=== PATIENT | male | born 1970 | race African-American/Black ===

== ENCOUNTER 2020-05-01 15:00 | Inpatient (IN) | payer OTHER ==
--- NOTE | 2020-05-01 15:50 | BHS.RME ---
Substance Use & Tx History - Substance Use History Alcohol Substance amount: 4-5 40 oz beer, one pint madie Frequency of use: Daily Substance route: Oral Date of Last Use: 05/01/20 Heroin Substance amount: one bundle Frequency of use: Daily Substance route: Inhalation (ex: sniffing or snorting) Date of Last Use: 04/30/20 Cocaine-Crack Substance amount: $100 Frequency of use: Once a month Substance route: Smoking Date of Last Use: 03/02/20 - Last Treatment Date of last treatment: first [facility] visit Physical/Psych/Mental Status - Behavior General Behavior: Increased activity (restlessness, agitation) Eye Contact: Normal - Cooperativeness Cooperativeness: Cooperative - Thinking Thought Processes: Tight Thought content: Future oriented - Physical Health Problems Is patient presently having any pain?: No Does patient presently have any injuries (include location): No Does patient currently have a fever: No CIWA Nausea/Vomitin-Mild Nausea/No Vomiting Muscle Tremors: 1-None Visible, but [place] Anxiety: 3 Agitation: 1-Slight > Activity Paroxysmal Sweats: 2 Orientation: 0-Oriented Tacttile Disturbances: 0-None Auditory Disturbances: 0-None Visual Disturbances: 1-Very Mild Sensitivity Headache: 0-None Present CIWA-Ar Total Score: 9
--- NOTE | 2020-05-01 16:45 | HP ---
COWS - Scale Resting Pulse: 0= NV 80 or Below Sweatin= No chills or Flushing Restless Observation: 0= Sits Still Pupil Size: 0= Normal to Room Light Bone or Joint Aches: 0= None Runny Nose/ Eye Tearin= None GI Upset > 30mins: 0= None Tremor Observation: 0= None Yawning Observation: 0= None Anxiety or Irritability: 1=Feels Anxious/Irritable Goose Flesh Skin: 0=Smooth Skin COWS Score: 1 CIWA Score Nausea/Vomitin-Mild Nausea/No Vomiting (Patient is at high risk of relapse due to poor living environment. Patient is not in full withdrawal due to having drank recently.) Muscle Tremors: 1-None Visible, but [place] Anxiety: 3 Agitation: 1-Slight > Activity Paroxysmal Sweats: 2 Orientation: 0-Oriented Tacttile Disturbances: 0-None Auditory Disturbances: 0-None Visual Disturbances: 1-Very Mild Sensitivity Headache: 0-None Present CIWA-Ar Total Score: 9 - Admission Criteria OASAS Guidelines: Admission for Medically Managed Detox: Requires at least one of the followin. CIWA greater than 12 2. Seizures within the past 24 hours 3. Delirium tremens within the past 24 hours 4. Hallucinations within the past 24 hours 5. Acute intervention needed for co occurring medical disorder 6. Acute intervention needed for co occurring psychiatric disorder 7. Severe withdrawal that cannot be handled at a lower level of care (continued vomiting, continued diarrhea, abnormal vital signs) requiring intravenous medication and/or fluids 8. Admitting History and Physical - Admission Chief Complaint: detox History of Present Illness: Patient is a 50 y.o. PMHx of diabetes and hyperlipidemia presenting to [facility] for detox. Patient was examined in the room and is in no acute distress. 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 Heroin 1 bundle a day intranasal, 2 overdoses, crack 100$ every month, smoke 2 packs of cigarettes a day. - Substance Use History Alcohol Substance amount: 4-5 40 oz beer, one pint madie Frequency of use: Daily Substance route: Oral Date of Last Use: 05/01/20 Heroin Substance amount: one bundle Frequency of use: Daily Substance route: Inhalation (ex: sniffing or snorting) Date of Last Use: 04/30/20 Cocaine-Crack Substance amount: $100 Frequency of use: Once a month Substance route: Smoking Date of Last Use: 03/02/20 - Last Treatment Date of last treatment: first [facility] visit - Past Medical History PIECE DYER: No: Seizure Cardiovascular: Yes: Hyperlipdemia. No: HTN Pulmonary: No: COPD, Pneumonia Gastrointestinal: No: GERD, GI Bleed Hepatobiliary: Yes: Hepatitis C Heme/Onc: No: Anemia Infectious Disease: Yes: STD's. No: HIV, Tuberculosis Psych: Yes: Depression - Past Surgical History Past Surgical History: Yes: Stent (x1 LLE) - Smoking History Smoking history: Current every day smoker Have you smoked in the past 12 months: Yes Aproximately how many cigarettes per day: 40 - Alcohol/Substance Use Hx Alcohol Use: Yes Number of Drinks Daily: 4 History of Substance Use: reports: Cocaine, Heroin - Social History Usual Living Arrangement: Yes: Alone ADL: Independent Occupation: [employer] History of Recent Travel: No Admission [facility] Allergies/Adverse Reactions: Allergies Allergy/AdvReac Type Severity Reaction Status Date / Time No Known Allergies Allergy Verified 05/01/20 16:53 History of Present Illness: Patient is a 50 y.o. PMHx of diabetes and hyperlipidemia presenting to [facility] for detox. Patient was examined in the room and is in no acute distress. 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 Heroin 1 bundle a day intranasal, 2 overdoses, crack 100$ every month, smoke 2 packs of cigarettes a day. - Substance Use History Alcohol Substance amount: 4-5 40 oz beer, one pint madie Frequency of use: Daily Substance route: Oral Date of Last Use: 05/01/20 Heroin Substance amount: one bundle Frequency of use: Daily Substance route: Inhalation (ex: sniffing or snorting) Date of Last Use: 04/30/20 Cocaine-Crack Substance amount: $100 Frequency of use: Once a month Substance route: Smoking Date of Last Use: 03/02/20 - Last Treatment Date of last treatment: first [facility] visit - Ebola screening Have you traveled outside of the country in the last 21 days: No Have you had contact with anyone from an Ebola affected area: No Have you been sick,other than usual withdrawal symptoms: No Do you have a fever: No - Review of Systems Constitutional: No Symptoms Reported EENT: denies: Blurred Vision, Double Vision Respiratory: denies: Cough, Shortness of Breath Cardiac: denies: Chest Pain, Lightheadedness GI: denies: Constipated, Diarrhea, Nausea, Vomiting : denies: Burning, Dysuria Musculoskeletal: reports: Back Pain Integumentary: reports: No Symptoms Reported Neuro: denies: Headache, Dizziness Psychiatric: reports: Judgement Intact, Mood/Affect Appropiate, Orientated x3, Anxious, Depressed Patient History - Smoking Cessation Smoking history: Current every day smoker Initiated information on smoking cessation: Yes 'Breaking Loose' booklet given: 05/01/20 Admission Physical Exam [facility] Physical General Appearance: Yes: Within Normal Limits, No Apparent Distress, Nourished, Appropriately Dressed Respiratory: Yes: No Respiratory Distress, No Accessory Muscle Use, Wheezing Cardiology: Yes: Within Normal Limits, Regular Rhythm, Regular Rate Abdominal: Yes: Within Normal Limits, Normal Bowel Sounds, Non Tender, Flat, Soft Back: Yes: Within Normal Limits. No: CVA Tenderness, CVA Tenderness (L) Musculoskeletal: Yes: Within Normal Limits, Joint Stiffness. No: Joint swelling, Muscle Pain Extremities: Yes: Normal Inspection, Non-Tender. No: Pedal Edema Neurological: Yes: Within Normal Limits, Fully Oriented, Alert, Motor Strength 5/5, Normal Mood/Affect, Normal Response Integumentary: Yes: Within Normal Limits, Dry, Warm - Diagnostic (1) Alcohol abuse Current Visit: Yes Status: Acute (2) Alcohol abuse with alcohol-induced disorder Current Visit: Yes Status: Acute (3) Alcohol abuse with alcohol-induced anxiety disorder Current Visit: Yes Status: Acute (4) Depressed Current Visit: Yes Status: Acute Cleared for Admission [facility] - Detox or Rehab [facility] Level of Care: Medically Managed Detox Regimen/Protocol: Methadone Breathalyzer - Breathalyzer Breathalyzer: 0.036 Vital Signs - Vital Signs Vital signs refused: No Temperature: 97.9 F Pulse Rate: 71 Respiratory Rate: 20 Blood Pressure: 119/71 - Height Height: 1.7 m - Weight Weight: 73.482 kg - BMI Body Mass Index (BMI): 25.3 Urine Drug Screen - Test Device Lot number: [id number] Expiration date: 12/05/21 - Control Is test valid?: Yes - Results Drug screen NEGATIVE: No Urine drug screen results: FEN-Fentanyl, MOP-Opiates, MTD-Methadone Inpatient Rehab Admission - Rehab Decision to Admit Inpatient rehab admission?: No
[2020-05-01] MEDS ORDERED: ONDANSETRON *ODT* 4 MG TABLET SL ONE (16:53)
[2020-05-01] MEDS ORDERED: chlordiazePOXIDE HCL 25 MG CAPSULE PO PRN (16:53)
[2020-05-01] MEDS ORDERED: MAG HYDROX/AL HYDROX/SIMETH 30 ML UNIT-DOSE CUP PO PRN (16:53)
[2020-05-01] MEDS ORDERED: MENTHOL/PHENOL 1 EACH UD MM PRN (16:53)
[2020-05-01] MEDS ORDERED: NICOTINE POLACRILEX 2 MG GUM BUC PRN (16:53)
[2020-05-01] MEDS ORDERED: BISMUTH SUBSALICYLATE 524 MG/30 ML UD PO PRN (16:53)
[2020-05-01] MEDS ORDERED: MAGNESIUM HYDROX 2400MG/30ML ORAL SUSPENSION 30 ML CUP PO PRN (16:53)
[2020-05-01] MEDS ORDERED: IBUPROFEN 400 MG TABLET (FP) PO PRN (16:53)
[2020-05-01] MEDS ORDERED: ACETAMINOPHEN 325 MG TABLET (FP) PO PRN ×2 (16:53)
[2020-05-01] MEDS ORDERED: MAGNESIUM CITRATE 300 ML BOTTLE PO PRN (16:53)
[2020-05-01 16:56] VITALS: BMI 25.3
[2020-05-01] MEDS: chlordiazePOXIDE HCL 25 MG CAPSULE PO SCH ×2 (18:34→23:16)
[2020-05-01] MEDS: hydrOXYzine PAMOATE 25 MG CAPSULE (FP) PO SCH ×2 (18:34→23:16)
[2020-05-01] MEDS: THIAMINE HCL 100 MG TABLET (FP) PO SCH (23:16)
[2020-05-01] MEDS: MELATONIN 5 MG TABLETS PO SCH (23:17)
[2020-05-02] MEDS: hydrOXYzine PAMOATE 25 MG CAPSULE (FP) PO SCH ×5 (06:01→23:09)
[2020-05-02] MEDS: chlordiazePOXIDE HCL 25 MG CAPSULE PO SCH ×4 (06:01→23:08)
[2020-05-02] MEDS ORDERED: METHADONE HCL 10 MG TABLET PO SCH (09:15)
[2020-05-02] MEDS ORDERED: METHADONE 40 MG, METHADONE 30 MG PO ONE (09:45)
[2020-05-02] MEDS ORDERED: METHADONE HCL 10 MG TABLET ONE (10:02)
[2020-05-02] MEDS ORDERED: METHADONE HCL 40 MG DISPERSABLE TABLET ONE (10:03)
[2020-05-02] MEDS: NICOTINE 7 MG/24 HOURS TOPICAL PATCH TD SCH (10:15)
[2020-05-02] MEDS: PRENATAL VITAMINS W/ FOLIC ACID TABLET (FP) PO SCH (10:15)
--- NOTE | 2020-05-02 10:18 | PN ---
Teaching Attending Note Name of Resident: Conrado Griffith ATTENDING PHYSICIAN STATEMENT I saw and evaluated the patient. I reviewed the resident's note and discussed the case with the resident. I agree with the resident's findings and plan as documented. SUBJECTIVE: OBJECTIVE: ASSESSMENT AND PLAN: Agree with resident's findings and plan for detox.
[2020-05-02 10:55] LABS: HEMATOCRIT 44.2 % (35.4-49); HEMOGLOBIN 15.2 GM/dL (11.7-16.9); MCH 30.5 pg (25.7-33.7); MCHC 34.4 g/dl (32.0-35.9); MEAN CELL VOLUME 88.5 fl (80-96); MEAN PLT VOLUME 9.1 fl (7.5-11.1); PLATELET COUNT 279 K/MM3 (134-434); RBC 4.99 M/mm3 (4.00-5.60); RDW 13.1 % (11.9-15.9); WHITE BLOOD COUNT 6.9 K/mm3 (4.0-10.0)
[2020-05-02 11:07] LABS: ALBUMIN 3.1 g/dl (3.4-5.0); BILIRUBIN,TOTAL 0.5 mg/dL (0.2-1); BLOOD UREA NITROGEN 9.5 mg/dL (7-18); CALCIUM 8.7 mg/dL (8.5-10.1); CREATININE 0.9 mg/dL (0.55-1.3); TOT PROT 7.1 g/dl (6.4-8.2)
--- NOTE | 2020-05-02 14:44 | PN ---
S CIWA - CIWA Score Nausea/Vomitin Muscle Tremors: 2 Anxiety: 2 Agitation: 2 Paroxysmal Sweats: 1-Minimal Palms Moist Orientation: 0-Oriented Tacttile Disturbances: 1-Very Mild Itch/Numbness Auditory Disturbances: 0-None Visual Disturbances: 0-None Headache: 2-Mild CIWA-Ar Total Score: 12 BHS Progress Note (SOAP) Subjective: alert,irritable,anxious,interrupted sleep,tremor,aching pain in the body and back,history of type 2 dm non compliance Objective: 05/02/20 14:41 Vital Signs Temperature 98.0 F 05/02/20 13:02 Pulse Rate 69 05/02/20 13:02 Respiratory Rate 18 05/02/20 13:02 Blood Pressure 148/80 05/02/20 13:02 O2 Sat by Pulse Oximetry (%) 95 05/02/20 13:02 05/02/20 14:41 Laboratory Last Values WBC 6.9 K/mm3 (4.0-10.0) 05/02/20 08:10 RBC 4.99 M/mm3 (4.00-5.60) 05/02/20 08:10 Hgb 15.2 GM/dL (11.7-16.9) 05/02/20 08:10 Hct 44.2 % (35.4-49) 05/02/20 08:10 MCV 88.5 fl (80-96) 05/02/20 08:10 MCH 30.5 pg (25.7-33.7) 05/02/20 08:10 MCHC 34.4 g/dl (32.0-35.9) 05/02/20 08:10 RDW 13.1 % (11.9-15.9) 05/02/20 08:10 Plt Count 279 K/MM3 (134-434) 05/02/20 08:10 MPV 9.1 fl (7.5-11.1) 05/02/20 08:10 Sodium 139 mmol/L (136-145) 05/02/20 08:10 Potassium 4.0 mmol/L (3.5-5.1) 05/02/20 08:10 Chloride 104 mmol/L (98-107) 05/02/20 08:10 Carbon Dioxide 29 mmol/L (21-32) 05/02/20 08:10 Anion Gap 6 MMOL/L (8-16) L 05/02/20 08:10 BUN 9.5 mg/dL (7-18) 05/02/20 08:10 Creatinine 0.9 mg/dL (0.55-1.3) 05/02/20 08:10 Est GFR (CKD-EPI)AfAm 114.21 05/02/20 08:10 Est GFR (CKD-EPI)NonAf 98.54 05/02/20 08:10 Random Glucose 359 mg/dL (74-106) H 05/02/20 08:10 Calcium 8.7 mg/dL (8.5-10.1) 05/02/20 08:10 Total Bilirubin 0.5 mg/dL (0.2-1) 05/02/20 08:10 AST 8 U/L (15-37) L 05/02/20 08:10 ALT 15 U/L (13-61) 05/02/20 08:10 Alkaline Phosphatase 104 U/L (45-117) 05/02/20 08:10 Total Protein 7.1 g/dl (6.4-8.2) 05/02/20 08:10 Albumin 3.1 g/dl (3.4-5.0) L 05/02/20 08:10 Syphilis Serology Reactive (NONREACTIVE) A* 05/02/20 08:10 RPR Titer Reactive 1:1 (NONREACTIVE) H 05/02/20 08:10 COVID-19 ([place]) Not detected (Not Detected) 05/01/20 17:00 patinet type dm non compliance history fo syhilis adequately treated with 3 injections 2 years ago Assessment: 05/02/20 14:42 withdrawal symptom Plan: continue detox librium regimen,bgm achs,metformin 500 mgs po bidac,insulin coverage sliding scale
--- NOTE | 2020-05-02 15:30 | EKG ---
Test Reason : Blood Pressure : / mmHG Vent. Rate : 064 BPM Atrial Rate : 064 BPM P-R Int : 150 ms QRS Dur : 104 ms QT Int : 416 ms P-R-T Axes : 066 074 -10 degrees QTc Int : 429 ms NORMAL SINUS RHYTHM MINIMAL VOLTAGE CRITERIA FOR LVH, MAY BE NORMAL VARIANT T WAVE ABNORMALITY, CONSIDER ANTEROLATERAL ISCHEMIA ABNORMAL ECG NO PREVIOUS ECGS AVAILABLE Confirmed by CALEB KOVACS, BESSY ([id number]) on 05/02/2020 3:29:39 PM Referred By: Confirmed By:BESSY ELLIS MD
[2020-05-02] MEDS ORDERED: INSULIN SLIDING SCALE (NOVOLOG) 1 VIAL SQ ONE (17:16)
[2020-05-02] MEDS: metFORMIN HCL 500 MG TABLET (FP) PO SCH (17:44)
[2020-05-02] MEDS: INSULIN (NOVOLOG) ASPART 100 UNITS/ML 10ML VIAL SQ SCH ×2 (17:47→23:08)
[2020-05-02] MEDS: THIAMINE HCL 100 MG TABLET (FP) PO SCH (23:09)
[2020-05-02] MEDS: MELATONIN 5 MG TABLETS PO SCH (23:09)
[2020-05-03] MEDS ORDERED: METHADONE HCL 10 MG TABLET ONE (04:58)
[2020-05-03] MEDS ORDERED: METHADONE HCL 40 MG DISPERSABLE TABLET ONE (04:59)
[2020-05-03] MEDS: METHADONE 40 MG, METHADONE 30 MG PO SCH (07:19)
[2020-05-03] MEDS: chlordiazePOXIDE HCL 25 MG CAPSULE PO SCH ×4 (07:20→22:59)
[2020-05-03] MEDS: metFORMIN HCL 500 MG TABLET (FP) PO SCH ×2 (07:20→17:30)
[2020-05-03] MEDS: hydrOXYzine PAMOATE 25 MG CAPSULE (FP) PO SCH ×5 (07:20→23:00)
[2020-05-03] MEDS ORDERED: INSULIN SLIDING SCALE (NOVOLOG) 1 VIAL SQ ONE (07:21)
[2020-05-03] MEDS: INSULIN (NOVOLOG) ASPART 100 UNITS/ML 10ML VIAL SQ SCH ×4 (07:36→23:01)
--- NOTE | 2020-05-03 09:32 | PN ---
BHS Progress Note (SOAP) Subjective: complaints of mild low back pain Objective: 05/03/20 09:27 PE Gnl: WDWN, in no distress MS: awake, alert, nl language function Motor: nl movement of limbs Coordination: nl, nl tremor Laboratory Tests 05/01/20 05/02/20 05/02/20 17:00 08:00 08:10 WBC RBC Hgb Hct MCV MCH MCHC RDW Plt Count MPV Sodium Potassium Chloride Carbon Dioxide Anion Gap BUN Creatinine Est GFR (CKD-EPI)AfAm Est GFR (CKD-EPI)NonAf POC Glucometer Random Glucose Hemoglobin A1c % 12.4 H Calcium Total Bilirubin AST ALT Alkaline Phosphatase Total Protein Albumin Syphilis Serology Reactive A* RPR Titer COVID-19 ([place]) Not detected 05/02/20 05/02/20 05/02/20 08:10 08:10 08:10 WBC 6.9 RBC 4.99 Hgb 15.2 Hct 44.2 MCV 88.5 MCH 30.5 MCHC 34.4 RDW 13.1 Plt Count 279 MPV 9.1 Sodium 139 Potassium 4.0 Chloride 104 Carbon Dioxide 29 Anion Gap 6 L BUN 9.5 Creatinine 0.9 Est GFR (CKD-EPI)AfAm 114.21 Est GFR (CKD-EPI)NonAf 98.54 POC Glucometer Random Glucose 359 H Hemoglobin A1c % Calcium 8.7 Total Bilirubin 0.5 AST 8 L ALT 15 Alkaline Phosphatase 104 Total Protein 7.1 Albumin 3.1 L Syphilis Serology RPR Titer Reactive 1:1 H COVID-19 ([place]) 05/02/20 05/02/20 05/03/20 16:54 21:09 07:19 WBC RBC Hgb Hct MCV MCH MCHC RDW Plt Count MPV Sodium Potassium Chloride Carbon Dioxide Anion Gap BUN Creatinine Est GFR (CKD-EPI)AfAm Est GFR (CKD-EPI)NonAf POC Glucometer 515 469 244 Random Glucose Hemoglobin A1c % Calcium Total Bilirubin AST ALT Alkaline Phosphatase Total Protein Albumin Syphilis Serology RPR Titer COVID-19 ([place]) Home Medication List Medication Instructions Recorded Confirmed Type Metformin HCl [Glucophage] 500 mg PO BID 05/02/20 05/02/20 History Active Medications Generic Name Dose Route Start Last Admin Trade Name Freq PRN Reason Stop Dose Admin Acetaminophen 650 mg 05/01/20 16:53 Tylenol - PO Q6H PRN PAIN LEVEL 4 - 6 Acetaminophen 650 mg 05/01/20 16:53 Tylenol - PO Q6H PRN FEVER Al Hydroxide/Mg Hydroxide 30 ml 05/01/20 16:53 Mylanta Oral Suspension - PO Q6H PRN DYSPEPSIA Bismuth Subsalicylate 524 mg 05/01/20 16:53 Pepto-Bismol - PO Q1H PRN DIARRHEA Chlordiazepoxide HCl 25 mg 05/03/20 05:00 05/03/20 07:20 Librium - PO 05/03/20 23:01 25 mg [id number] CHRISTEL Administration Chlordiazepoxide HCl 25 mg 05/01/20 16:53 Librium - PO 05/03/20 23:59 Q4H PRN WITHDRAWAL(CONT SUBST) Chlordiazepoxide HCl 10 mg 05/04/20 05:00 Librium - PO 05/04/20 23:01 Q5P-IIN CHRISTEL Chlordiazepoxide HCl 10 mg 05/05/20 05:00 Librium - PO 05/05/20 17:01 Q12H CHRISTEL Chlordiazepoxide HCl 10 mg 05/04/20 00:00 Librium - PO 05/05/20 00:00 Q4H PRN WITHDRAWAL(CONT SUBST) Chlordiazepoxide HCl 10 mg 05/06/20 05:00 Librium - PO 05/06/20 05:01 ONCE@0500 ONE Eucalyptus/Menthol/Phenol/Sorbitol 1 each 05/01/20 16:53 Cepastat Lozenge - MM 05/07/20 16:53 Q4H PRN SORE THROAT Hydroxyzine Pamoate 25 mg 05/01/20 18:00 05/03/20 07:20 Vistaril - PO 05/07/20 16:53 25 mg Q4HWA CHRISTEL Administration Ibuprofen 400 mg 05/01/20 16:53 Motrin - PO Q6H PRN PAIN LEVEL 1 - 3 Insulin Aspart 0 units 05/02/20 16:30 05/03/20 07:36 Novolog Vial SQ 4 units ACHS CHRISTEL Administration Protocol Magnesium Citrate 300 ml 05/01/20 16:53 Citroma - PO Q48H PRN CONSTIPATION Magnesium Hydroxide 30 ml 05/01/20 16:53 Milk Of Magnesia - PO PRN PRN CONSTIPATION Melatonin 5 mg 05/01/20 22:00 05/02/20 23:09 Melatonin PO 5 mg HS CHRISTEL Administration Metformin HCl 500 mg 05/02/20 16:30 05/03/20 07:20 Glucophage - PO 500 mg BIDAC CHRISTEL Administration Methadone HCl 40 mg/ Methadone 70 mg 05/03/20 06:00 05/03/20 07:19 HCl 30 mg PO 05/09/20 06:01 70 mg DAILY@0600 CHRISTEL Administration Methocarbamol 500 mg 05/01/20 16:53 Robaxin - PO 05/07/20 16:53 Q6H PRN MUSCLE SPASMS Nicotine 7 mg 05/02/20 10:00 05/02/20 10:15 Nicoderm Patch - TD Not Given DAILY CHRISTEL Nicotine Polacrilex 2 mg 05/01/20 16:53 Nicorette Gum - BUC Q2H PRN NICOTINE REPLACEMENT RX Multivit/Folic Acid/Iron 1 tab 05/02/20 10:00 05/02/20 10:15 Vitamins (Sjr) - PO 1 tab DAILY CHRISTEL Administration Thiamine HCl 100 mg 05/01/20 22:00 05/02/20 23:09 Vitamin B1 - PO 100 mg HS CHRISTEL Administration Assessment: 05/03/20 09:27 Patient is a 50 y.o. PMHx of diabetes and hyperlipidemia [facility] Patient was examined in the room and is in no acute distress. 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 Heroin 1 bundle a day intranasal, 2 overdoses, crack 100$ every month, smoke 2 packs of cigarettes a day. Imp 1. Alcohol use disorder, in withdrawal 2. Opiate use disorder, withdrawal 3. Cocaine use disorder 4. DM, glucose trending down 5. hyperlipidemia 6. RPR 1:1 05/03/20 09:29 05/03/20 09:31 Plan: 1. Librium detox protocol 2. Metformin, continue 500 bid 3. will check pts hx ? tx for syphilis 4. prn Robaxin for back complaints
[2020-05-03] MEDS: PRENATAL VITAMINS W/ FOLIC ACID TABLET (FP) PO SCH (10:17)
[2020-05-03] MEDS: NICOTINE 7 MG/24 HOURS TOPICAL PATCH TD SCH (10:17)
[2020-05-03] MEDS: MELATONIN 5 MG TABLETS PO SCH (23:00)
[2020-05-03] MEDS: THIAMINE HCL 100 MG TABLET (FP) PO SCH (23:21)
[2020-05-04] MEDS ORDERED: chlordiazePOXIDE HCL 10 MG CAPSULE PO PRN
[2020-05-04] MEDS ORDERED: METHADONE HCL 10 MG TABLET ONE (04:34)
[2020-05-04] MEDS ORDERED: METHADONE HCL 40 MG DISPERSABLE TABLET ONE (04:34)
[2020-05-04] MEDS: metFORMIN HCL 500 MG TABLET (FP) PO SCH ×2 (06:18→18:44)
[2020-05-04] MEDS: METHADONE 40 MG, METHADONE 30 MG PO SCH (06:18)
[2020-05-04] MEDS: chlordiazePOXIDE HCL 10 MG CAPSULE PO SCH ×4 (06:18→23:28)
[2020-05-04] MEDS: hydrOXYzine PAMOATE 25 MG CAPSULE (FP) PO SCH ×5 (06:29→23:28)
[2020-05-04] MEDS: INSULIN (NOVOLOG) ASPART 100 UNITS/ML 10ML VIAL SQ SCH ×4 (07:12→23:29)
[2020-05-04] MEDS: PRENATAL VITAMINS W/ FOLIC ACID TABLET (FP) PO SCH (10:07)
[2020-05-04] MEDS: METHOCARBAMOL 500 MG TABLET PO PRN ×2 (10:08→23:28)
[2020-05-04] MEDS: NICOTINE 7 MG/24 HOURS TOPICAL PATCH TD SCH (10:08)
--- NOTE | 2020-05-04 11:24 | PN ---
BHS CIWA - CIWA Score Nausea/Vomitin-No Nausea/No Vomiting Muscle Tremors: None Anxiety: 2 Agitation: 0-Normal Activity Paroxysmal Sweats: 2 Orientation: 0-Oriented Tacttile Disturbances: 0-None Auditory Disturbances: 0-None Visual Disturbances: 0-None Headache: 2-Mild CIWA-Ar Total Score: 6 BHS Progress Note (SOAP) Subjective: c/o sweats, anxiety, and headache. Objective: 05/04/20 11:23 Vital Signs 05/04/20 05/04/20 05/04/20 06:27 07:57 09:20 Temperature 98.1 F 96.8 F L Pulse Rate 96 H 58 L 83 Respiratory 18 18 18 Rate Blood Pressure 162/103 H 169/93 143/88 O2 Sat by Pulse 97 Oximetry (%) Assessment: 05/04/20 11:24 AOX3, in no acute respiratory distress. Full ROM, ambulating in the unit. Withdrawal symptoms. Plan: continue detox.
[2020-05-04] MEDS: MELATONIN 5 MG TABLETS PO SCH (23:28)
[2020-05-04] MEDS: THIAMINE HCL 100 MG TABLET (FP) PO SCH (23:29)
[2020-05-05] MEDS ORDERED: METHADONE HCL 10 MG TABLET ONE (04:06)
[2020-05-05] MEDS ORDERED: METHADONE HCL 40 MG DISPERSABLE TABLET ONE (04:06)
[2020-05-05] MEDS: METHADONE 40 MG, METHADONE 30 MG PO SCH (06:10)
[2020-05-05] MEDS: chlordiazePOXIDE HCL 10 MG CAPSULE PO SCH ×2 (06:10→17:28)
[2020-05-05] MEDS: hydrOXYzine PAMOATE 25 MG CAPSULE (FP) PO SCH ×5 (06:10→22:40)
[2020-05-05] MEDS: INSULIN (NOVOLOG) ASPART 100 UNITS/ML 10ML VIAL SQ SCH ×4 (07:42→22:42)
[2020-05-05] MEDS: metFORMIN HCL 500 MG TABLET (FP) PO SCH ×2 (07:44→17:27)
[2020-05-05] MEDS: PRENATAL VITAMINS W/ FOLIC ACID TABLET (FP) PO SCH (10:09)
[2020-05-05] MEDS: NICOTINE 7 MG/24 HOURS TOPICAL PATCH TD SCH (10:09)
[2020-05-05] MEDS: METHOCARBAMOL 500 MG TABLET PO PRN (10:10)
[2020-05-05] MEDS ORDERED: INSULIN SLIDING SCALE (NOVOLOG) 1 VIAL SQ ONE (11:53)
--- NOTE | 2020-05-05 15:01 | PN ---
S CIWA - CIWA Score Nausea/Vomitin-No Nausea/No Vomiting Muscle Tremors: 1-None Visible, but [place] Anxiety: 1-Mildly Anxious Agitation: 0-Normal Activity Paroxysmal Sweats: 1-Minimal Palms Moist Orientation: 0-Oriented Tacttile Disturbances: 0-None Auditory Disturbances: 0-None Visual Disturbances: 0-None Headache: 0-None Present CIWA-Ar Total Score: 3 BHS Progress Note (SOAP) Subjective: 50 years old male was admitted on 05/01/20 for alcohol withdrawal sx management treating with librium detox regiment feels better today less tremor mild anxiety mr caceres prefers returning to methadone program for behavior and p sychosocial therapies Objective: 05/05/20 15:00 Laboratory Tests 05/01/20 05/02/20 05/02/20 17:00 08:00 08:10 WBC RBC Hgb Hct MCV MCH MCHC RDW Plt Count MPV Sodium Potassium Chloride Carbon Dioxide Anion Gap BUN Creatinine Est GFR (CKD-EPI)AfAm Est GFR (CKD-EPI)NonAf POC Glucometer Random Glucose Hemoglobin A1c % 12.4 H Calcium Total Bilirubin AST ALT Alkaline Phosphatase Total Protein Albumin Syphilis Serology Reactive A* RPR Titer COVID-19 ([place]) Not detected 05/02/20 05/02/20 05/02/20 08:10 08:10 08:10 WBC 6.9 RBC 4.99 Hgb 15.2 Hct 44.2 MCV 88.5 MCH 30.5 MCHC 34.4 RDW 13.1 Plt Count 279 MPV 9.1 Sodium 139 Potassium 4.0 Chloride 104 Carbon Dioxide 29 Anion Gap 6 L BUN 9.5 Creatinine 0.9 Est GFR (CKD-EPI)AfAm 114.21 Est GFR (CKD-EPI)NonAf 98.54 POC Glucometer Random Glucose 359 H Hemoglobin A1c % Calcium 8.7 Total Bilirubin 0.5 AST 8 L ALT 15 Alkaline Phosphatase 104 Total Protein 7.1 Albumin 3.1 L Syphilis Serology RPR Titer Reactive 1:1 H COVID-19 ([place]) 05/02/20 05/02/20 05/03/20 16:54 21:09 07:19 WBC RBC Hgb Hct MCV MCH MCHC RDW Plt Count MPV Sodium Potassium Chloride Carbon Dioxide Anion Gap BUN Creatinine Est GFR (CKD-EPI)AfAm Est GFR (CKD-EPI)NonAf POC Glucometer 515 469 244 Random Glucose Hemoglobin A1c % Calcium Total Bilirubin AST ALT Alkaline Phosphatase Total Protein Albumin Syphilis Serology RPR Titer COVID-19 ([place]) 05/03/20 05/03/20 05/04/20 16:48 20:42 06:17 WBC RBC Hgb Hct MCV MCH MCHC RDW Plt Count MPV Sodium Potassium Chloride Carbon Dioxide Anion Gap BUN Creatinine Est GFR (CKD-EPI)AfAm Est GFR (CKD-EPI)NonAf POC Glucometer > 600 466 350 Random Glucose Hemoglobin A1c % Calcium Total Bilirubin AST ALT Alkaline Phosphatase Total Protein Albumin Syphilis Serology RPR Titer COVID-19 ([place]) 05/04/20 05/04/20 05/04/20 11:11 18:42 23:27 WBC RBC Hgb Hct MCV MCH MCHC RDW Plt Count MPV Sodium Potassium Chloride Carbon Dioxide Anion Gap BUN Creatinine Est GFR (CKD-EPI)AfAm Est GFR (CKD-EPI)NonAf POC Glucometer 471 510 277 Random Glucose Hemoglobin A1c % Calcium Total Bilirubin AST ALT Alkaline Phosphatase Total Protein Albumin Syphilis Serology RPR Titer COVID-19 ([place]) 05/05/20 05/05/20 06:10 11:48 WBC RBC Hgb Hct MCV MCH MCHC RDW Plt Count MPV Sodium Potassium Chloride Carbon Dioxide Anion Gap BUN Creatinine Est GFR (CKD-EPI)AfAm Est GFR (CKD-EPI)NonAf POC Glucometer 248 507 Random Glucose Hemoglobin A1c % Calcium Total Bilirubin AST ALT Alkaline Phosphatase Total Protein Albumin Syphilis Serology RPR Titer COVID-19 ([place]) uncontrolled insulin dependent diabetes aic 12.4 indicates lack of diabetes management health teaching on risks of uncontrolled hyperglycemia insults eyes and kidney and neuro damage 05/05/20 15:02 Assessment: 05/05/20 15:03 alcohol withdrawal 05/05/20 15:03 uncontrolled insulin dependent diabetes Plan: librium regiment metformin with insulin coverage
[2020-05-05] MEDS: MELATONIN 5 MG TABLETS PO SCH (22:42)
[2020-05-05] MEDS: THIAMINE HCL 100 MG TABLET (FP) PO SCH (22:43)
[2020-05-06] MEDS ORDERED: chlordiazePOXIDE HCL 10 MG CAPSULE PO ONE (05:00)
[2020-05-06] MEDS ORDERED: METHADONE HCL 40 MG DISPERSABLE TABLET ONE (05:05)
[2020-05-06] MEDS ORDERED: METHADONE HCL 10 MG TABLET ONE (05:05)
[2020-05-06] MEDS: METHADONE 40 MG, METHADONE 30 MG PO SCH (06:38)
[2020-05-06] MEDS: metFORMIN HCL 500 MG TABLET (FP) PO SCH (06:39)
[2020-05-06] MEDS: hydrOXYzine PAMOATE 25 MG CAPSULE (FP) PO SCH ×2 (06:48→10:15)
[2020-05-06] MEDS: INSULIN (NOVOLOG) ASPART 100 UNITS/ML 10ML VIAL SQ SCH (07:09)
[2020-05-06] MEDS ORDERED: INSULIN SLIDING SCALE (NOVOLOG) 1 VIAL SQ ONE (07:48)
[2020-05-06 09:55] VITALS: BP 132/91; PULSE 92; TEMP 97.1
[2020-05-06] MEDS: NICOTINE 7 MG/24 HOURS TOPICAL PATCH TD SCH (10:15)
[2020-05-06] MEDS: PRENATAL VITAMINS W/ FOLIC ACID TABLET (FP) PO SCH (10:15)
--- NOTE | 2020-05-06 13:01 | DS ---
[facility] Discharge Summary Admission Date: 05/01/20 Discharge Date: 05/06/20 - History Present History: Alcohol Dependence Additional Comments: 50 years old male was admitted on 05/01/20 for alcohol withdrawal sx management treated with librium detox regiment mr mantilla has completed the librium regimen and is tolerated well General Appearance: Yes: Within Normal Limits, No Apparent Distress, Nourished, Appropriately Dressed Respiratory: Yes: No Respiratory Distress, No Accessory Muscle Use, Wheezing Cardiology: Yes: Within Normal Limits, Regular Rhythm, Regular Rate Abdominal: Yes: Within Normal Limits, Normal Bowel Sounds, Non Tender, Flat, Soft Back: Yes: Within Normal Limits. No: CVA Tenderness, CVA Tenderness (L) Musculoskeletal: Yes: Within Normal Limits, Joint Stiffness. No: Joint swelling, Muscle Pain Extremities: Yes: Normal Inspection, Non-Tender. No: Pedal Edema Neurological: Yes: Within Normal Limits, Fully Oriented, Alert, Motor Strength 5/5, Normal Mood/Affect, Normal Response Integumentary: Yes: Within Normal Limits, Dry, Warm Pertinent Past History: time for discharge 48 minutes transferred order set from detox to rehab - Physical Exam Results Vital Signs: Vital Signs Temperature 97.1 F L 05/06/20 08:34 Pulse Rate 92 H 05/06/20 08:34 Respiratory Rate 18 05/06/20 08:34 Blood Pressure 132/91 05/06/20 08:34 O2 Sat by Pulse Oximetry (%) 97 05/06/20 06:46 Pertinent Admission Physical Exam Findings: alcohol withdrawal Vital Signs - 24 hr 05/05/20 05/05/20 05/06/20 16:32 20:56 06:46 Temperature 97.3 F L 97.5 F L 98.6 F Pulse Rate 74 84 80 Respiratory 18 18 18 Rate Blood Pressure 116/80 138/88 152/87 O2 Sat by Pulse 95 97 Oximetry (%) 05/06/20 08:34 Temperature 97.1 F L Pulse Rate 92 H Respiratory 18 Rate Blood Pressure 132/91 O2 Sat by Pulse Oximetry (%) Laboratory Tests 05/01/20 05/02/20 05/02/20 17:00 08:00 08:10 WBC RBC Hgb Hct MCV MCH MCHC RDW Plt Count MPV Sodium Potassium Chloride Carbon Dioxide Anion Gap BUN Creatinine Est GFR (CKD-EPI)AfAm Est GFR (CKD-EPI)NonAf POC Glucometer Random Glucose Hemoglobin A1c % 12.4 H Calcium Total Bilirubin AST ALT Alkaline Phosphatase Total Protein Albumin Syphilis Serology Reactive A* RPR Titer COVID-19 ([place]) Not detected 05/02/20 05/02/20 05/02/20 08:10 08:10 08:10 WBC 6.9 RBC 4.99 Hgb 15.2 Hct 44.2 MCV 88.5 MCH 30.5 MCHC 34.4 RDW 13.1 Plt Count 279 MPV 9.1 Sodium 139 Potassium 4.0 Chloride 104 Carbon Dioxide 29 Anion Gap 6 L BUN 9.5 Creatinine 0.9 Est GFR (CKD-EPI)AfAm 114.21 Est GFR (CKD-EPI)NonAf 98.54 POC Glucometer Random Glucose 359 H Hemoglobin A1c % Calcium 8.7 Total Bilirubin 0.5 AST 8 L ALT 15 Alkaline Phosphatase 104 Total Protein 7.1 Albumin 3.1 L Syphilis Serology RPR Titer Reactive 1:1 H COVID-19 ([place]) 05/02/20 05/02/20 05/03/20 16:54 21:09 07:19 WBC RBC Hgb Hct MCV MCH MCHC RDW Plt Count MPV Sodium Potassium Chloride Carbon Dioxide Anion Gap BUN Creatinine Est GFR (CKD-EPI)AfAm Est GFR (CKD-EPI)NonAf POC Glucometer [phone] Random Glucose Hemoglobin A1c % Calcium Total Bilirubin AST ALT Alkaline Phosphatase Total Protein Albumin Syphilis Serology RPR Titer COVID-19 ([place]) 05/03/20 05/03/20 05/04/20 16:48 20:42 06:17 WBC RBC Hgb Hct MCV MCH MCHC RDW Plt Count MPV Sodium Potassium Chloride Carbon Dioxide Anion Gap BUN Creatinine Est GFR (CKD-EPI)AfAm Est GFR (CKD-EPI)NonAf POC Glucometer > 600 466 350 Random Glucose Hemoglobin A1c % Calcium Total Bilirubin AST ALT Alkaline Phosphatase Total Protein Albumin Syphilis Serology RPR Titer COVID-19 ([place]) 05/04/20 05/04/20 05/04/20 11:11 18:42 23:27 WBC RBC Hgb Hct MCV MCH MCHC RDW Plt Count MPV Sodium Potassium Chloride Carbon Dioxide Anion Gap BUN Creatinine Est GFR (CKD-EPI)AfAm Est GFR (CKD-EPI)NonAf POC Glucometer [phone] Random Glucose Hemoglobin A1c % Calcium Total Bilirubin AST ALT Alkaline Phosphatase Total Protein Albumin Syphilis Serology RPR Titer COVID-19 ([place]) 05/05/20 05/05/20 05/05/20 06:10 11:48 16:35 WBC RBC Hgb Hct MCV MCH MCHC RDW Plt Count MPV Sodium Potassium Chloride Carbon Dioxide Anion Gap BUN Creatinine Est GFR (CKD-EPI)AfAm Est GFR (CKD-EPI)NonAf POC Glucometer 248 507 341 Random Glucose Hemoglobin A1c % Calcium Total Bilirubin AST ALT Alkaline Phosphatase Total Protein Albumin Syphilis Serology RPR Titer COVID-19 ([place]) 05/05/20 05/06/20 21:44 06:40 WBC RBC Hgb Hct MCV MCH MCHC RDW Plt Count MPV Sodium Potassium Chloride Carbon Dioxide Anion Gap BUN Creatinine Est GFR (CKD-EPI)AfAm Est GFR (CKD-EPI)NonAf POC Glucometer 364 315 Random Glucose Hemoglobin A1c % Calcium Total Bilirubin AST ALT Alkaline Phosphatase Total Protein Albumin Syphilis Serology RPR Titer COVID-19 ([place]) uncontrolled type II diabetes with a1c 12.5 - Treatment Hospital Course: Detox Protocol Followed, Detoxed Safely, Responded well, Discharged Condition Good, Rehab Referral Accepted Patient has Accepted a [facility] Referral [facility] - Medication Discharge Medications: Ambulatory Orders Metformin HCl [Glucophage] 1,000 mg PO BIDAC 05/02/20 - Diagnosis (1) Alcohol dependence with withdrawal, uncomplicated Status: Acute (2) Uncontrolled diabetes mellitus Status: Chronic Qualifiers: Diabetes mellitus type: type 2 Glycemic state: with hyperglycemia Qualified Code(s): E11.65 - Type 2 diabetes mellitus with hyperglycemia (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
== END 2020-05-06 11:36 | disposition other institution (70) | DRG 773 ==
LOC: YASAS 15:00 → Y3N 16:41
PROVIDERS: ADMIT Allergy & Immunology; ATTEND Allergy & Immunology
PROC: HZ2ZZZZ Detoxification Services for Substance Abuse Treatment (ICD-10-PCS; principal; 2020-05-01)
DX: F10.230 Alcohol dependence with withdrawal, uncomplicated (principal); F11.20 Opioid dependence, uncomplicated; F14.10 Cocaine abuse, uncomplicated; F17.210 Nicotine dependence, cigarettes, uncomplicated; F10.24 Alcohol dependence with alcohol-induced mood disorder; F19.24 Other psychoactive substance dependence with psychoactive substance-induced mood disorder; E11.65 Type 2 diabetes mellitus with hyperglycemia; Z79.84 Long term (current) use of oral hypoglycemic drugs; B18.2 Chronic viral hepatitis C; E78.5 Hyperlipidemia, unspecified; Z86.19 Personal history of other infectious and parasitic diseases; Z95.828 Presence of other vascular implants and grafts
CPT/HCPCS: 36415; 80053; 82962; 83036; 85027; 86593; 86780; 93005; 93010; U0003

== ENCOUNTER 2020-05-06 11:18 | Inpatient (IN) | payer OTHER ==
--- NOTE | 2020-05-06 13:02 | HP ---
[facility] Rehab Assess/Revision - Admission History Admitted to Rehab from: [facility] Date of Admission to Rehab: 05/06/20 - Vital signs Vital Signs: Vital Signs Period Temp Pulse Resp BP Sys/Redmond Pulse Ox Last 24 Hr 97.3 F 86 18 134/74 97 - Findings Detox History & Physical reviewed: Yes Concur with findings: Yes Comments/Additional Findings: trasnferred from detox to rehab admission as per protocol Inpatient Rehab Admission - Rehab Decision to Admit Inpatient rehab admission?: Yes - Initial Determination Are CD services needed?: Yes Free of communicable disease: Yes Not in need of hospitalization: Yes - Rehab Admission Criteria Previous failed treatment: Yes Poor recovery environment: Yes Comorbidities: Yes Lacks judgement: Yes Patient is meeting Inpatient Rehab admission criteria:: Yes
[2020-05-06] MEDS ORDERED: guaiFENesin 200 MG/10 ML 10 ML UNIT-DOSE CUPS PO PRN (13:21)
[2020-05-06] MEDS ORDERED: MAGNESIUM CITRATE 300 ML BOTTLE PO PRN (13:21)
[2020-05-06] MEDS ORDERED: MAG HYDROX/AL HYDROX/SIMETH 30 ML UNIT-DOSE CUP PO PRN (13:21)
[2020-05-06] MEDS ORDERED: NICOTINE POLACRILEX 2 MG GUM BC PRN (13:21)
[2020-05-06] MEDS ORDERED: P-EPHED 60MG/TRIPROLIDI 2.5MG TABLET PO PRN (13:21)
[2020-05-06] MEDS ORDERED: ACETAMINOPHEN 325 MG TABLET (FP) PO PRN (13:21)
[2020-05-06] MEDS ORDERED: IBUPROFEN 400 MG TABLET (FP) PO PRN (13:21)
[2020-05-06] MEDS ORDERED: MAGNESIUM HYDROX 2400MG/30ML ORAL SUSPENSION 30 ML CUP PO PRN (13:21)
[2020-05-06] MEDS ORDERED: LOPERAMIDE HCL 2 MG CAPSULE PO PRN (13:21)
[2020-05-06] MEDS: metFORMIN HCL 500 MG TABLET (FP) PO SCH (16:44)
[2020-05-06] MEDS: INSULIN SLIDING SCALE (NOVOLOG) 1 VIAL SQ SCH ×2 (16:47→21:28)
[2020-05-06] MEDS ORDERED: INSULIN SLIDING SCALE (NOVOLOG) 1 VIAL SQ ONE ×2 (16:51→21:48)
[2020-05-06] MEDS: THIAMINE HCL 100 MG TABLET (FP) PO SCH (21:26)
[2020-05-06] MEDS: MELATONIN 5 MG TABLETS PO SCH (21:26)
[2020-05-07] MEDS ORDERED: METHADONE HCL 40 MG DISPERSABLE TABLET ONE (05:30)
[2020-05-07] MEDS ORDERED: METHADONE HCL 10 MG TABLET ONE (05:31)
[2020-05-07] MEDS ORDERED: METHADONE HCL 10 MG TABLET PO SCH (06:00)
[2020-05-07] MEDS: METHADONE 40 MG, METHADONE 30 MG PO SCH (06:32)
[2020-05-07] MEDS ORDERED: INSULIN SLIDING SCALE (NOVOLOG) 1 VIAL SQ ONE ×5 (06:56→21:44)
[2020-05-07] MEDS: INSULIN SLIDING SCALE (NOVOLOG) 1 VIAL SQ SCH ×4 (06:56→21:23)
[2020-05-07] MEDS: metFORMIN HCL 500 MG TABLET (FP) PO SCH ×2 (06:57→16:38)
[2020-05-07] MEDS: PRENATAL VITAMINS W/ FOLIC ACID TABLET (FP) PO SCH (10:42)
[2020-05-07] MEDS: METHOCARBAMOL 500 MG TABLET PO SCH ×4 (10:43→21:20)
[2020-05-07] MEDS: NICOTINE 7 MG/24 HOURS TOPICAL PATCH TD SCH (10:44)
[2020-05-07] MEDS: THIAMINE HCL 100 MG TABLET (FP) PO SCH (21:20)
[2020-05-07] MEDS: MELATONIN 5 MG TABLETS PO SCH (21:20)
[2020-05-08] MEDS ORDERED: METHADONE HCL 10 MG TABLET ONE (04:08)
[2020-05-08] MEDS ORDERED: METHADONE HCL 40 MG DISPERSABLE TABLET ONE (04:08)
[2020-05-08] MEDS: METHADONE 40 MG, METHADONE 30 MG PO SCH (06:34)
[2020-05-08] MEDS: metFORMIN HCL 500 MG TABLET (FP) PO SCH ×2 (06:36→16:28)
[2020-05-08] MEDS: INSULIN SLIDING SCALE (NOVOLOG) 1 VIAL SQ SCH ×4 (07:57→21:31)
[2020-05-08] MEDS: PRENATAL VITAMINS W/ FOLIC ACID TABLET (FP) PO SCH (10:03)
[2020-05-08] MEDS: NICOTINE 7 MG/24 HOURS TOPICAL PATCH TD SCH (10:03)
[2020-05-08] MEDS: METHOCARBAMOL 500 MG TABLET PO SCH ×4 (10:03→21:27)
[2020-05-08] MEDS ORDERED: INSULIN SLIDING SCALE (NOVOLOG) 1 VIAL SQ ONE ×3 (11:45→21:29)
[2020-05-08] MEDS: THIAMINE HCL 100 MG TABLET (FP) PO SCH (21:26)
[2020-05-08] MEDS: MELATONIN 5 MG TABLETS PO SCH (21:27)
[2020-05-09] MEDS ORDERED: METHADONE HCL 10 MG TABLET ONE (02:59)
[2020-05-09] MEDS ORDERED: METHADONE HCL 40 MG DISPERSABLE TABLET ONE (02:59)
[2020-05-09] MEDS: METHADONE 40 MG, METHADONE 30 MG PO SCH (06:28)
[2020-05-09] MEDS: metFORMIN HCL 500 MG TABLET (FP) PO SCH ×2 (06:28→16:27)
[2020-05-09] MEDS ORDERED: INSULIN SLIDING SCALE (NOVOLOG) 1 VIAL SQ ONE ×4 (06:30→21:22)
[2020-05-09] MEDS: INSULIN SLIDING SCALE (NOVOLOG) 1 VIAL SQ SCH ×4 (06:32→21:23)
[2020-05-09] MEDS: METHOCARBAMOL 500 MG TABLET PO SCH ×4 (10:26→21:20)
[2020-05-09] MEDS: PRENATAL VITAMINS W/ FOLIC ACID TABLET (FP) PO SCH (10:26)
[2020-05-09] MEDS: NICOTINE 7 MG/24 HOURS TOPICAL PATCH TD SCH (10:26)
[2020-05-09] MEDS: MELATONIN 5 MG TABLETS PO SCH (21:20)
[2020-05-09] MEDS: THIAMINE HCL 100 MG TABLET (FP) PO SCH (21:20)
[2020-05-10] MEDS ORDERED: METHADONE HCL 10 MG TABLET ONE (04:07)
[2020-05-10] MEDS ORDERED: METHADONE HCL 40 MG DISPERSABLE TABLET ONE (04:07)
[2020-05-10] MEDS: metFORMIN HCL 500 MG TABLET (FP) PO SCH ×2 (07:01→16:27)
[2020-05-10] MEDS: METHADONE 40 MG, METHADONE 30 MG PO SCH (07:01)
[2020-05-10] MEDS: INSULIN SLIDING SCALE (NOVOLOG) 1 VIAL SQ SCH ×4 (07:48→21:28)
[2020-05-10] MEDS: METHOCARBAMOL 500 MG TABLET PO SCH ×4 (09:14→21:25)
[2020-05-10] MEDS: PRENATAL VITAMINS W/ FOLIC ACID TABLET (FP) PO SCH (09:14)
[2020-05-10] MEDS: NICOTINE 7 MG/24 HOURS TOPICAL PATCH TD SCH (09:15)
[2020-05-10] MEDS ORDERED: PT OWN MED DRAWER 7, Y5N ONE (09:54)
[2020-05-10] MEDS ORDERED: INSULIN SLIDING SCALE (NOVOLOG) 1 VIAL SQ ONE ×2 (12:08→21:29)
[2020-05-10] MEDS: MELATONIN 5 MG TABLETS PO SCH (21:25)
[2020-05-10] MEDS: THIAMINE HCL 100 MG TABLET (FP) PO SCH (21:25)
[2020-05-11] MEDS ORDERED: METHADONE HCL 40 MG DISPERSABLE TABLET ONE (05:33)
[2020-05-11] MEDS ORDERED: METHADONE HCL 10 MG TABLET ONE (05:34)
[2020-05-11] MEDS: METHADONE 40 MG, METHADONE 30 MG PO SCH (06:08)
[2020-05-11] MEDS ORDERED: INSULIN SLIDING SCALE (NOVOLOG) 1 VIAL SQ ONE ×4 (07:28→21:58)
[2020-05-11] MEDS: INSULIN SLIDING SCALE (NOVOLOG) 1 VIAL SQ SCH ×4 (07:28→21:55)
[2020-05-11] MEDS: metFORMIN HCL 500 MG TABLET (FP) PO SCH ×2 (07:29→17:01)
[2020-05-11] MEDS: METHOCARBAMOL 500 MG TABLET PO SCH ×4 (10:17→21:12)
[2020-05-11] MEDS: PRENATAL VITAMINS W/ FOLIC ACID TABLET (FP) PO SCH (10:17)
[2020-05-11] MEDS: NICOTINE 7 MG/24 HOURS TOPICAL PATCH TD SCH (10:18)
--- NOTE | 2020-05-11 16:28 | CONSULT ---
[facility] Psychiatric Consult - Data Date of interview: 05/11/20 Admission source: Transfer from [address] [place] [address]. Identifying data: First admission to [address] for this 50 y/o AA male (completed detoxification treatment at [address] [place] [address]) who is pursuing maintenance of sobriety in rehabilitation treatment. MIRA issues : opioid, alcohol, nicotine. Patient is , father of five, domiciled, unemployed and supported on SSI benefits. Substance Abuse History: Discussed with the patient. MIRA profile as follows : Alcohol. Substance amount: 4-5 40 oz beer, one pint madie. Frequency of use: Daily. Substance route: Oral. Date of Last Use: 05/01/20. Heroin. Substance amount: one bundle. Frequency of use: Daily. Substance route: Inhalation (ex: sniffing or snorting). Date of Last Use: 04/30/20. Cocaine- Crack. Substance amount: $100. Frequency of use: Once a month. Substance route: Smoking. Date of Last Use: 03/02/20. History of multiple MIRA treatment failures. Medical History: Meical profile is remarkable for hypertension, diabetes mellitus, hepatitis C, antecedent of tuberculosis, history of syphilis, dyslipidemia and vascular issues in lower extremities (stent in place in left leg). Psychiatric History: Patient denies history of psychiatric hospitalizations, OPD care or suicide attempts. Mr Skinner is currently on methadone methadone maintenance (80 mg/day) at the [facility] in [facility]. He endorses diagnosis of MDD but he raymond not recall the names of medications prescribed to him in the past (not taken for 2-3 years). Physical/Sexual Abuse/Trauma History: Patient denies history of abuse. Additional Comment: Urine drug screen results: FEN-Fentanyl, MOP-Opiates, MTD- Methadone. Noted. Mental Status Exam - Mental Status Exam Alert and Oriented to: Time, Place, Person Cognitive Function: Good Patient Appearance: Well Groomed Mood: Hopeful, Euthymic Affect: Appropriate, Normal Range Patient Behavior: Appropriate, Cooperative Speech Pattern: Clear, Appropriate Voice Loudness: Normal Thought Process: Intact, Goal Oriented Thought Disorder: Not Present Hallucinations: Denies Suicidal Ideation: Denies Homicidal Ideation: Denies Insight/Judgement: Fair Sleep: Poorly, Difficulty falling asleep Appetite: Good Gait/Station: Normal Psychiatric Findings - Problem List ([place] 1, 2,3) (1) Alcohol use disorder Current Visit: Yes Status: Chronic (2) Opioid dependence on agonist therapy Current Visit: Yes Status: Chronic (3) Nicotine dependence Current Visit: Yes Status: Chronic (4) Insomnia Current Visit: Yes Status: Acute - Initial Treatment Plan Initial Treatment Plan: Psychoeducation. Support. Sleep hygiene. Motivational counseling. Group/individual therapy. Insomnia is addressed with belsomra 10 mg po hs prn. Side effects/benefits discussed with the patient. Mr Skinner grants consent (verbal) to MD. Zuleta.
[2020-05-11] MEDS: THIAMINE HCL 100 MG TABLET (FP) PO SCH (21:12)
[2020-05-11] MEDS: MELATONIN 5 MG TABLETS PO SCH (21:12)
[2020-05-12] MEDS ORDERED: METHADONE HCL 40 MG DISPERSABLE TABLET ONE (05:29)
[2020-05-12] MEDS ORDERED: METHADONE HCL 10 MG TABLET ONE (05:29)
[2020-05-12] MEDS: METHADONE 40 MG, METHADONE 30 MG PO SCH (06:25)
[2020-05-12] MEDS: INSULIN SLIDING SCALE (NOVOLOG) 1 VIAL SQ SCH ×4 (07:22→21:33)
[2020-05-12] MEDS ORDERED: INSULIN SLIDING SCALE (NOVOLOG) 1 VIAL SQ ONE ×3 (07:22→21:53)
[2020-05-12] MEDS: metFORMIN HCL 500 MG TABLET (FP) PO SCH ×2 (07:23→16:51)
[2020-05-12] MEDS: PRENATAL VITAMINS W/ FOLIC ACID TABLET (FP) PO SCH (09:51)
[2020-05-12] MEDS: METHOCARBAMOL 500 MG TABLET PO SCH ×4 (09:51→21:31)
[2020-05-12] MEDS: NICOTINE 7 MG/24 HOURS TOPICAL PATCH TD SCH (09:52)
[2020-05-12] MEDS: THIAMINE HCL 100 MG TABLET (FP) PO SCH (21:31)
[2020-05-12] MEDS: MELATONIN 5 MG TABLETS PO SCH (21:31)
[2020-05-13] MEDS ORDERED: METHADONE HCL 10 MG TABLET ONE (05:54)
[2020-05-13] MEDS ORDERED: METHADONE HCL 40 MG DISPERSABLE TABLET ONE (05:54)
[2020-05-13] MEDS: METHADONE 40 MG, METHADONE 30 MG PO SCH (06:33)
[2020-05-13] MEDS: metFORMIN HCL 500 MG TABLET (FP) PO SCH ×2 (06:35→16:23)
[2020-05-13] MEDS: INSULIN SLIDING SCALE (NOVOLOG) 1 VIAL SQ SCH ×4 (06:37→21:15)
[2020-05-13] MEDS ORDERED: INSULIN SLIDING SCALE (NOVOLOG) 1 VIAL SQ ONE ×3 (06:42→16:23)
[2020-05-13] MEDS: METHOCARBAMOL 500 MG TABLET PO SCH ×4 (09:56→21:12)
[2020-05-13] MEDS: PRENATAL VITAMINS W/ FOLIC ACID TABLET (FP) PO SCH (09:56)
[2020-05-13] MEDS: NICOTINE 7 MG/24 HOURS TOPICAL PATCH TD SCH (09:57)
[2020-05-13] MEDS: THIAMINE HCL 100 MG TABLET (FP) PO SCH (21:12)
[2020-05-13] MEDS: MELATONIN 5 MG TABLETS PO SCH (21:12)
[2020-05-14] MEDS ORDERED: METHADONE HCL 40 MG DISPERSABLE TABLET ONE (05:32)
[2020-05-14] MEDS ORDERED: METHADONE HCL 10 MG TABLET ONE (05:32)
[2020-05-14] MEDS: METHADONE 40 MG, METHADONE 30 MG PO SCH (06:46)
[2020-05-14] MEDS: metFORMIN HCL 500 MG TABLET (FP) PO SCH ×2 (07:17→16:38)
[2020-05-14] MEDS: INSULIN SLIDING SCALE (NOVOLOG) 1 VIAL SQ SCH ×4 (07:17→21:01)
[2020-05-14] MEDS ORDERED: INSULIN SLIDING SCALE (NOVOLOG) 1 VIAL SQ ONE ×4 (07:17→21:49)
[2020-05-14] MEDS: NICOTINE 7 MG/24 HOURS TOPICAL PATCH TD SCH (10:30)
[2020-05-14] MEDS: PRENATAL VITAMINS W/ FOLIC ACID TABLET (FP) PO SCH (10:30)
[2020-05-14] MEDS: METHOCARBAMOL 500 MG TABLET PO SCH ×4 (10:30→21:00)
[2020-05-14] MEDS: THIAMINE HCL 100 MG TABLET (FP) PO SCH (21:00)
[2020-05-14] MEDS: MELATONIN 5 MG TABLETS PO SCH (21:00)
[2020-05-15] MEDS ORDERED: METHADONE HCL 40 MG DISPERSABLE TABLET ONE (05:33)
[2020-05-15] MEDS ORDERED: METHADONE HCL 10 MG TABLET ONE (05:33)
[2020-05-15] MEDS: METHADONE 40 MG, METHADONE 30 MG PO SCH (06:24)
[2020-05-15] MEDS ORDERED: INSULIN SLIDING SCALE (NOVOLOG) 1 VIAL SQ ONE ×4 (07:18→21:49)
[2020-05-15] MEDS: INSULIN SLIDING SCALE (NOVOLOG) 1 VIAL SQ SCH ×4 (07:18→21:00)
[2020-05-15] MEDS: metFORMIN HCL 500 MG TABLET (FP) PO SCH ×2 (07:19→16:39)
[2020-05-15] MEDS ORDERED: PT OWN MED DRAWER 7, Y5N ONE (09:15)
[2020-05-15] MEDS: PRENATAL VITAMINS W/ FOLIC ACID TABLET (FP) PO SCH (10:16)
[2020-05-15] MEDS: METHOCARBAMOL 500 MG TABLET PO SCH ×4 (10:16→20:59)
[2020-05-15] MEDS: NICOTINE 7 MG/24 HOURS TOPICAL PATCH TD SCH (10:17)
[2020-05-15] MEDS: MELATONIN 5 MG TABLETS PO SCH (20:59)
[2020-05-15] MEDS: THIAMINE HCL 100 MG TABLET (FP) PO SCH (20:59)
[2020-05-16] MEDS ORDERED: METHADONE HCL 40 MG DISPERSABLE TABLET ONE (05:31)
[2020-05-16] MEDS ORDERED: METHADONE HCL 10 MG TABLET ONE (05:31)
[2020-05-16] MEDS: METHADONE 40 MG, METHADONE 30 MG PO SCH (05:56)
[2020-05-16] MEDS: metFORMIN HCL 500 MG TABLET (FP) PO SCH ×2 (07:03→16:28)
[2020-05-16] MEDS: INSULIN SLIDING SCALE (NOVOLOG) 1 VIAL SQ SCH ×4 (07:03→21:29)
[2020-05-16] MEDS ORDERED: INSULIN SLIDING SCALE (NOVOLOG) 1 VIAL SQ ONE ×4 (07:03→21:53)
[2020-05-16] MEDS: PRENATAL VITAMINS W/ FOLIC ACID TABLET (FP) PO SCH (10:45)
[2020-05-16] MEDS: METHOCARBAMOL 500 MG TABLET PO SCH ×4 (10:46→21:28)
[2020-05-16] MEDS: NICOTINE 7 MG/24 HOURS TOPICAL PATCH TD SCH (10:46)
[2020-05-16] MEDS: MELATONIN 5 MG TABLETS PO SCH (21:28)
[2020-05-16] MEDS: THIAMINE HCL 100 MG TABLET (FP) PO SCH (21:28)
[2020-05-17] MEDS ORDERED: METHADONE HCL 40 MG DISPERSABLE TABLET ONE (05:08)
[2020-05-17] MEDS ORDERED: METHADONE HCL 10 MG TABLET ONE (05:09)
[2020-05-17] MEDS: METHADONE 40 MG, METHADONE 30 MG PO SCH (06:40)
[2020-05-17] MEDS: INSULIN SLIDING SCALE (NOVOLOG) 1 VIAL SQ SCH ×4 (07:17→21:22)
[2020-05-17] MEDS ORDERED: INSULIN SLIDING SCALE (NOVOLOG) 1 VIAL SQ ONE ×3 (07:17→21:50)
[2020-05-17] MEDS: metFORMIN HCL 500 MG TABLET (FP) PO SCH ×2 (07:17→16:38)
[2020-05-17] MEDS: METHOCARBAMOL 500 MG TABLET PO SCH ×4 (10:41→21:20)
[2020-05-17] MEDS: NICOTINE 7 MG/24 HOURS TOPICAL PATCH TD SCH (10:41)
[2020-05-17] MEDS: PRENATAL VITAMINS W/ FOLIC ACID TABLET (FP) PO SCH (10:41)
[2020-05-17] MEDS: THIAMINE HCL 100 MG TABLET (FP) PO SCH (21:20)
[2020-05-17] MEDS: MELATONIN 5 MG TABLETS PO SCH (21:20)
[2020-05-18] MEDS ORDERED: METHADONE HCL 40 MG DISPERSABLE TABLET ONE (03:45)
[2020-05-18] MEDS ORDERED: METHADONE HCL 10 MG TABLET ONE (03:45)
[2020-05-18] MEDS: METHADONE 40 MG, METHADONE 30 MG PO SCH (06:09)
[2020-05-18] MEDS: metFORMIN HCL 500 MG TABLET (FP) PO SCH ×2 (06:14→16:26)
[2020-05-18] MEDS: INSULIN SLIDING SCALE (NOVOLOG) 1 VIAL SQ SCH ×4 (06:14→21:43)
[2020-05-18] MEDS ORDERED: INSULIN SLIDING SCALE (NOVOLOG) 1 VIAL SQ ONE ×4 (07:08→21:57)
[2020-05-18] MEDS: PRENATAL VITAMINS W/ FOLIC ACID TABLET (FP) PO SCH (10:02)
[2020-05-18] MEDS: NICOTINE 7 MG/24 HOURS TOPICAL PATCH TD SCH (10:02)
[2020-05-18] MEDS: METHOCARBAMOL 500 MG TABLET PO SCH ×4 (10:03→21:40)
--- NOTE | 2020-05-18 17:01 | PN ---
Psychiatric Progress Note Vital Signs: Vital Signs Period Temp Pulse Resp BP Sys/Redmond Pulse Ox Last 24 Hr 96 F-98.6 F 68 18 150/79 96-97 Date of Session: 05/18/20 Chief Complaint:: " I don't sleep at night." HPI: Hospital course is unremarkable. Patient wanted to see the psychiatrist to discuss medications for insomnia. ROS: Unremarkable. Current Medications: Active Medications Generic Name Dose Route Start Last Admin Trade Name Freq PRN Reason Stop Dose Admin Acetaminophen 650 mg 05/06/20 13:21 Tylenol - PO Q4H PRN FEVER Al Hydroxide/Mg Hydroxide 30 ml 05/06/20 13:21 Mylanta Oral Suspension - PO Q6H PRN DYSPEPSIA Guaifenesin 10 ml 05/06/20 13:21 Robitussin - PO Q6H PRN COUGH Ibuprofen 400 mg 05/06/20 13:21 05/07/20 06:31 Motrin - PO 400 mg Q6H PRN Administration Pain level 4-6 Insulin Aspart 1 vial 05/06/20 16:30 05/18/20 16:27 Novolog Vial Sliding Scale - SQ 2 unit ACHS CHRISTEL Administration Protocol Loperamide HCl 4 mg 05/06/20 13:21 Imodium - PO Q6H PRN DIARRHEA Magnesium Citrate 300 ml 05/06/20 13:21 Citroma - PO Q48H PRN CONSTIPATION Magnesium Hydroxide 30 ml 05/06/20 13:21 Milk Of Magnesia - PO DAILY PRN CONSTIPATION Melatonin 5 mg 05/06/20 22:00 05/17/20 21:20 Melatonin PO 5 mg HS CHRISTEL Administration Metformin HCl 1,000 mg 05/06/20 16:30 05/18/20 16:26 Glucophage - PO 1,000 mg BIDAC CHRISTEL Administration Methadone HCl 40 mg/ Methadone 70 mg 05/13/20 06:00 05/18/20 06:09 HCl 30 mg PO 05/20/20 05:59 70 mg DAILY@0600 CHRISTEL Administration Methocarbamol 500 mg 05/07/20 10:00 05/18/20 14:50 Robaxin - PO 500 mg QID CHRISTEL Administration Nicotine 7 mg 05/07/20 10:00 05/18/20 10:02 Nicoderm Patch - TD Not Given DAILY CHRISTEL Nicotine Polacrilex 2 mg 05/06/20 13:21 Nicorette Gum - BC Q2H PRN NICOTINE REPLACEMENT RX Multivit/Folic Acid/Iron 1 tab 05/07/20 10:00 05/18/20 10:02 Vitamins (Sjr) - PO 1 tab DAILY CHRISTEL Administration Pseudoephedrine/Triprolidine 1 combo 05/06/20 13:21 Actifed - PO TID PRN NASAL CONGESTION Thiamine HCl 100 mg 05/06/20 22:00 05/17/20 21:20 Vitamin B1 - PO 100 mg HS CHRISTEL Administration Medication(s) Change(s): Belsomra 10 mg po hs prn. Ordered. Side effects/benefits discussed with the patient. Consent granted to MD. Current Side Effect: No Lab tests ordered: No Lab tests reviewed: Yes Provider note:: Chart reviewed. Patient interviewed. Progress aknowledged. Mr Skinner inicates that " everything is going well except for insomnia." He expresses motivation to stay sober in order to regain custody of his daughter. Patient is not psychotic. Mood remains euthymic. Cognition is intact. Patient denies suicidal or homicidal ideation, intent or plan. Mental status is stable. Total face to face time:: 25 Mental Status Exam - Mental Status Exam Alert and Oriented to: Time, Place, Person Cognitive Function: Good Patient Appearance: Well Groomed Mood: Hopeful, Euthymic Affect: Appropriate, Normal Range Patient Behavior: Appropriate, Cooperative Speech Pattern: Clear, Appropriate Voice Loudness: Normal Thought Process: Intact, Goal Oriented Thought Disorder: Not Present Hallucinations: Denies Homicidal Ideation: Denies Insight/Judgement: Fair Sleep: Poorly, Difficulty falling asleep Appetite: Good Gait/Station: Normal Psychiatric Treatment Plan - Problem List (1) Alcohol use disorder Current Visit: Yes Comment: . (2) Opioid dependence on agonist therapy Current Visit: Yes Comment: . (3) Nicotine dependence Current Visit: Yes Comment: . (4) Insomnia Current Visit: Yes Comment: .
[2020-05-18] MEDS: MELATONIN 5 MG TABLETS PO SCH (21:40)
[2020-05-18] MEDS: THIAMINE HCL 100 MG TABLET (FP) PO SCH (21:40)
[2020-05-18] MEDS: SUVOREXANT 10 MG TABLET PO PRN (21:42)
[2020-05-19] MEDS ORDERED: METHADONE HCL 40 MG DISPERSABLE TABLET ONE (03:27)
[2020-05-19] MEDS ORDERED: METHADONE HCL 10 MG TABLET ONE (03:28)
[2020-05-19] MEDS: METHADONE 40 MG, METHADONE 30 MG PO SCH (06:23)
[2020-05-19] MEDS: INSULIN SLIDING SCALE (NOVOLOG) 1 VIAL SQ SCH ×4 (06:45→21:01)
[2020-05-19] MEDS: metFORMIN HCL 500 MG TABLET (FP) PO SCH ×2 (06:45→16:59)
[2020-05-19] MEDS ORDERED: INSULIN SLIDING SCALE (NOVOLOG) 1 VIAL SQ ONE ×3 (06:54→21:46)
[2020-05-19] MEDS: METHOCARBAMOL 500 MG TABLET PO SCH ×4 (10:12→21:01)
[2020-05-19] MEDS: NICOTINE 7 MG/24 HOURS TOPICAL PATCH TD SCH (10:12)
[2020-05-19] MEDS: PRENATAL VITAMINS W/ FOLIC ACID TABLET (FP) PO SCH (10:12)
[2020-05-19] MEDS: THIAMINE HCL 100 MG TABLET (FP) PO SCH (21:00)
[2020-05-19] MEDS: SUVOREXANT 10 MG TABLET PO PRN (21:01)
[2020-05-19] MEDS: MELATONIN 5 MG TABLETS PO SCH (21:01)
[2020-05-20] MEDS ORDERED: METHADONE HCL 40 MG DISPERSABLE TABLET ONE (05:31)
[2020-05-20] MEDS ORDERED: METHADONE HCL 10 MG TABLET ONE (05:32)
[2020-05-20] MEDS ORDERED: METHADONE HCL 10 MG TABLET PO SCH (06:00)
[2020-05-20] MEDS ORDERED: METHADONE 40 MG, METHADONE 30 MG PO SCH (06:00)
[2020-05-20 07:03] VITALS: BP 145/75; PULSE 71; TEMP 99.2
[2020-05-20] MEDS: metFORMIN HCL 500 MG TABLET (FP) PO SCH (07:06)
[2020-05-20] MEDS: INSULIN SLIDING SCALE (NOVOLOG) 1 VIAL SQ SCH (07:06)
[2020-05-20] MEDS ORDERED: INSULIN SLIDING SCALE (NOVOLOG) 1 VIAL SQ ONE (07:06)
--- NOTE | 2020-05-20 09:28 | DS ---
[facility] Rehab Discharge Summary - [facility] Rehab Discharge Summary Admission Date: 05/06/20 Discharge Date: 05/20/20 - History Present History: Alcohol dependence, Cocaine dependence, Opioid dependence - Discharge Physical Exam Vital Signs: Vital Signs Temperature 99.2 F 05/20/20 05:52 Pulse Rate 71 05/20/20 05:52 Respiratory Rate 18 05/20/20 05:52 Blood Pressure 145/75 05/20/20 05:52 O2 Sat by Pulse Oximetry (%) 96 05/20/20 05:52 Laboratory Tests 05/06/20 05/06/20 05/07/20 16:46 21:28 06:29 POC Glucometer 300 328 332 05/07/20 05/07/20 05/07/20 12:08 16:40 21:22 POC Glucometer 400 361 329 05/08/20 05/08/20 05/08/20 06:33 11:44 16:27 POC Glucometer 307 264 276 05/08/20 05/09/20 05/09/20 21:28 06:27 12:09 POC Glucometer 302 293 296 05/09/20 05/09/20 05/10/20 16:29 21:21 07:00 POC Glucometer 233 204 241 05/10/20 05/10/20 05/10/20 12:06 16:27 21:26 POC Glucometer 214 285 202 05/11/20 05/11/20 05/11/20 06:07 12:03 17:02 POC Glucometer 235 245 203 05/11/20 05/12/20 05/12/20 21:55 06:23 12:20 POC Glucometer 218 224 236 05/12/20 05/12/20 05/13/20 16:52 21:32 06:34 POC Glucometer 288 187 238 05/13/20 05/13/20 05/13/20 11:59 16:22 21:14 POC Glucometer 275 208 204 05/14/20 05/14/20 05/14/20 06:45 12:24 16:35 POC Glucometer 202 214 219 05/14/20 05/15/20 05/15/20 20:59 06:23 12:09 POC Glucometer 231 236 190 05/15/20 05/15/20 05/16/20 16:38 20:57 05:55 POC Glucometer 278 232 189 09/17/20 09/17/20 09/17/20 12:03 16:29 21:30 POC Glucometer 276 194 181 05/17/20 05/17/20 05/17/20 06:39 12:06 16:40 POC Glucometer 177 199 181 05/17/20 05/18/20 05/18/20 21:21 06:10 11:42 POC Glucometer 222 165 242 05/18/20 05/18/20 05/19/20 16:24 21:34 06:21 POC Glucometer 172 206 156 05/19/20 05/19/20 05/19/20 11:54 16:58 20:59 POC Glucometer 198 141 244 05/20/20 05:52 POC Glucometer 172 ROS: DENIES CHEST PAIN, SOB, SHAKES, SWEATING, HEADACHES AND BODY ACHES PE ALERT AND ORIENTED X 3 SKIN WARM AND DRY +PERRLA, EOMS INTACT BL GI NT, BD EXT FULL ROM, NO TREMORS AMB AD JACINTO DENIES SI/HI A/P: ALCOHOL/COCAINE/OPIOD DEPENDENCE MMT PATIENT IS MEDICALLY STABLE FOR D/C AFTERCARE [facility], [facility]21/2020 - Treatment Discharge Condition: Discharge condition good Hospital Course: PATIENT IS DISCHARGED FROM REHAB TODAY FOR ALCOHOL, COCAINE AND OPIOD DEPENDENCE. ON MMT AND AFTERCARE ARRANGED FOR RETURN TO [facility] TOMORROW, 05/21/2020 AT 10-AM. DURING COURSE OF TREATMENT, PATIENT ATTENDED GROUP MEETINGS AND 1:1 COUNSELING SESSIONS WITH COUNSELOR. HE IS MOTIVATED TO MAINTAIN SOBRIETY AND MEDICALLY ADVISED TO CONTINUE WITH OTP TO PREVENT RELAPSE. PATIENT ALSO MEDICALLY ADVISED TO FOLLOW UP WITH PCP RECOMMENDED TO CONTINUE MANAGEMENT OF CHRONIC CONDITIONS. Ambulatory Orders Metformin HCl [Glucophage] 1,000 mg PO BIDAC 05/02/20 - Medication Discharge Medications: Ambulatory Orders Metformin HCl [Glucophage] 1,000 mg PO BIDAC 05/02/20 - Medication-Assisted Treatment (MAT) Medication-Assisted Treatment (MAT): Yes MAT Follow-up Referral: [facility], APPT 05/21/2020 AT 10AM. - Discharge Instructions Diet, activity, other medical instructions: Diet: NCS TOLERATED Activity: AD JACINTO TOLERATED Other medical instructions: F/ U WITH PCP RECOMMENDED - Follow-up Referral Minutes to complete discharge: 30 - AMA Did Patient Leave Against Medical Advice: No
[2020-05-20] MEDS: PRENATAL VITAMINS W/ FOLIC ACID TABLET (FP) PO SCH (09:29)
[2020-05-20] MEDS: METHOCARBAMOL 500 MG TABLET PO SCH (09:29)
[2020-05-20] MEDS: NICOTINE 7 MG/24 HOURS TOPICAL PATCH TD SCH (09:30)
== END 2020-05-20 09:40 | disposition home or self-care (01) | DRG 772 ==
LOC: YASAS 11:18 → Y3W 11:19
PROVIDERS: ADMIT Allergy & Immunology; ATTEND Allergy & Immunology
PROC: HZ42ZZZ Group Counseling for Substance Abuse Treatment, Cognitive-Behavioral (ICD-10-PCS; principal; 2020-05-06)
DX: F10.20 Alcohol dependence, uncomplicated (principal); F14.20 Cocaine dependence, uncomplicated; F11.20 Opioid dependence, uncomplicated; F17.210 Nicotine dependence, cigarettes, uncomplicated; I10 Essential (primary) hypertension; G47.00 Insomnia, unspecified; E78.5 Hyperlipidemia, unspecified; E11.9 Type 2 diabetes mellitus without complications; Z79.4 Long term (current) use of insulin; Z95.828 Presence of other vascular implants and grafts; Z86.11 Personal history of tuberculosis; Z86.19 Personal history of other infectious and parasitic diseases; Z56.0 Unemployment, unspecified
CPT/HCPCS: 82962

== ENCOUNTER 2020-09-05 13:22 | Inpatient (IN) | payer OTHER ==
[2020-09-05] MEDS ORDERED: ONDANSETRON *ODT* 4 MG TABLET SL PRN (14:42)
[2020-09-05] MEDS ORDERED: IBUPROFEN 400 MG TABLET (FP) PO PRN (14:42)
[2020-09-05] MEDS ORDERED: ACETAMINOPHEN 325 MG TABLET (FP) PO PRN ×2 (14:42)
[2020-09-05] MEDS ORDERED: MENTHOL/PHENOL 1 EACH UD MM PRN (14:42)
[2020-09-05] MEDS ORDERED: METHOCARBAMOL 500 MG TABLET PO PRN (14:42)
[2020-09-05] MEDS ORDERED: MAGNESIUM CITRATE 300 ML BOTTLE PO PRN (14:42)
[2020-09-05] MEDS ORDERED: MAG HYDROX/AL HYDROX/SIMETH 30 ML UNIT-DOSE CUP PO PRN (14:42)
[2020-09-05] MEDS ORDERED: chlordiazePOXIDE HCL 25 MG CAPSULE PO PRN (14:42)
[2020-09-05] MEDS ORDERED: BISMUTH SUBSALICYLATE 524 MG/30 ML PO PRN (14:42)
[2020-09-05] MEDS ORDERED: NICOTINE POLACRILEX 2 MG GUM BUC PRN (14:42)
[2020-09-05] MEDS ORDERED: MAGNESIUM HYDROX 2400MG/30ML ORAL SUSPENSION 30 ML CUP PO PRN (14:42)
[2020-09-05 17:47] LABS: HEMOGLOBIN 13.3 GM/dL (11.7-16.9); MCHC 33.4 g/dl (32.0-35.9); MEAN CELL VOLUME 89.9 fl (80-96); MEAN PLT VOLUME 7.5 fl (7.5-11.1); PLATELET COUNT 401 K/MM3 (134-434); RBC 4.45 M/mm3 (4.00-5.60); RDW 13.9 % (11.9-15.9); WHITE BLOOD COUNT 6.1 K/mm3 (4.0-10.0)
[2020-09-05 18:07] LABS: ALBUMIN 3.3 g/dl (3.4-5.0); BLOOD UREA NITROGEN 14.4 mg/dL (7-18); CALCIUM 9.2 mg/dL (8.5-10.1)
[2020-09-05 18:12] LABS: BILIRUBIN,TOTAL 0.3 mg/dL (0.2-1); TOT PROT 8.3 g/dl (6.4-8.2)
[2020-09-05 18:17] VITALS: BMI 26.6
[2020-09-05] MEDS: chlordiazePOXIDE HCL 25 MG CAPSULE PO SCH ×2 (18:59→22:26)
[2020-09-05] MEDS: hydrOXYzine PAMOATE 25 MG CAPSULE (FP) PO SCH ×2 (18:59→22:26)
[2020-09-05] MEDS: NICOTINE 21 MG/24 HOURS TOPICAL PATCH TD SCH (19:00)
[2020-09-05] MEDS: THIAMINE HCL 100 MG TABLET (FP) PO SCH (22:26)
[2020-09-05] MEDS: MELATONIN 5 MG TABLETS PO SCH (22:26)
[2020-09-06] MEDS: hydrOXYzine PAMOATE 25 MG CAPSULE (FP) PO SCH ×5 (06:02→22:33)
[2020-09-06] MEDS: chlordiazePOXIDE HCL 25 MG CAPSULE PO SCH ×4 (06:03→22:33)
[2020-09-06] MEDS ORDERED: methaDONE HCL 10 MG TABLET PO SCH (09:15)
[2020-09-06] MEDS ORDERED: methaDONE HCL 10 MG TABLET ONE (10:16)
[2020-09-06] MEDS ORDERED: methaDONE HCL 40 MG DISPERSABLE TABLET ONE (10:17)
[2020-09-06] MEDS: NICOTINE 21 MG/24 HOURS TOPICAL PATCH TD SCH (10:26)
[2020-09-06] MEDS: methaDONE 80 MG, methaDONE 10 MG PO SCH (10:26)
[2020-09-06] MEDS: PRENATAL VITAMINS W/ FOLIC ACID TABLET (FP) PO SCH (10:26)
[2020-09-06] MEDS: metFORMIN HCL 500 MG TABLET (FP) PO SCH (17:12)
[2020-09-06] MEDS: THIAMINE HCL 100 MG TABLET (FP) PO SCH (22:33)
[2020-09-06] MEDS: MELATONIN 5 MG TABLETS PO SCH (22:33)
[2020-09-07] MEDS ORDERED: methaDONE HCL 40 MG DISPERSABLE TABLET ONE ×2 (04:16→06:25)
[2020-09-07] MEDS ORDERED: methaDONE HCL 10 MG TABLET ONE ×2 (04:16→06:25)
[2020-09-07] MEDS: hydrOXYzine PAMOATE 25 MG CAPSULE (FP) PO SCH ×5 (06:29→22:24)
[2020-09-07] MEDS: chlordiazePOXIDE HCL 25 MG CAPSULE PO SCH ×4 (06:29→22:24)
[2020-09-07] MEDS: metFORMIN HCL 500 MG TABLET (FP) PO SCH ×2 (06:29→16:33)
[2020-09-07] MEDS: methaDONE 80 MG, methaDONE 10 MG PO SCH (06:29)
[2020-09-07] MEDS: PRENATAL VITAMINS W/ FOLIC ACID TABLET (FP) PO SCH (10:33)
[2020-09-07] MEDS: NICOTINE 21 MG/24 HOURS TOPICAL PATCH TD SCH (10:34)
[2020-09-07] MEDS ORDERED: INSULIN (NOVOLOG) ASPART 100 UNITS/ML 10ML VIAL SQ ONE (16:40)
[2020-09-07] MEDS: THIAMINE HCL 100 MG TABLET (FP) PO SCH (22:23)
[2020-09-07] MEDS: MELATONIN 5 MG TABLETS PO SCH (22:23)
[2020-09-08] MEDS ORDERED: chlordiazePOXIDE HCL 10 MG CAPSULE PO PRN
[2020-09-08] MEDS ORDERED: methaDONE HCL 10 MG TABLET ONE (04:19)
[2020-09-08] MEDS ORDERED: methaDONE HCL 40 MG DISPERSABLE TABLET ONE (04:19)
[2020-09-08] MEDS: hydrOXYzine PAMOATE 25 MG CAPSULE (FP) PO SCH ×5 (05:59→22:27)
[2020-09-08] MEDS: methaDONE 80 MG, methaDONE 10 MG PO SCH (05:59)
[2020-09-08] MEDS: chlordiazePOXIDE HCL 10 MG CAPSULE PO SCH ×4 (05:59→22:28)
[2020-09-08] MEDS: metFORMIN HCL 500 MG TABLET (FP) PO SCH ×2 (06:05→17:07)
[2020-09-08] MEDS: PRENATAL VITAMINS W/ FOLIC ACID TABLET (FP) PO SCH (10:06)
[2020-09-08] MEDS: NICOTINE 21 MG/24 HOURS TOPICAL PATCH TD SCH (10:06)
[2020-09-08] MEDS ORDERED: Insulin (LOG) Aspart 100 UNITS/ML VIAL SQ ONE (17:00)
[2020-09-08] MEDS: MELATONIN 5 MG TABLETS PO SCH (22:27)
[2020-09-08] MEDS: THIAMINE HCL 100 MG TABLET (FP) PO SCH (22:27)
[2020-09-09] MEDS ORDERED: methaDONE HCL 40 MG DISPERSABLE TABLET ONE (02:57)
[2020-09-09] MEDS ORDERED: methaDONE HCL 10 MG TABLET ONE (02:57)
[2020-09-09] MEDS: chlordiazePOXIDE HCL 10 MG CAPSULE PO SCH ×2 (05:49→18:11)
[2020-09-09] MEDS: methaDONE 80 MG, methaDONE 10 MG PO SCH (05:49)
[2020-09-09] MEDS: hydrOXYzine PAMOATE 25 MG CAPSULE (FP) PO SCH ×2 (05:49→09:27)
[2020-09-09] MEDS: metFORMIN HCL 500 MG TABLET (FP) PO SCH ×2 (06:02→18:11)
[2020-09-09] MEDS: INSULIN SLIDING SCALE (NOVOLOG) 1 VIAL SQ SCH ×2 (07:42→18:15)
[2020-09-09] MEDS: NICOTINE 21 MG/24 HOURS TOPICAL PATCH TD SCH (09:27)
[2020-09-09] MEDS: PRENATAL VITAMINS W/ FOLIC ACID TABLET (FP) PO SCH (10:04)
[2020-09-09] MEDS ORDERED: hydrOXYzine PAMOATE 25 MG CAPSULE (FP) PO PRN (10:19)
[2020-09-09] MEDS: THIAMINE HCL 100 MG TABLET (FP) PO SCH (22:26)
[2020-09-09] MEDS: MELATONIN 5 MG TABLETS PO SCH (22:26)
[2020-09-10] MEDS ORDERED: methaDONE HCL 10 MG TABLET ONE (04:20)
[2020-09-10] MEDS ORDERED: methaDONE HCL 40 MG DISPERSABLE TABLET ONE (04:20)
[2020-09-10] MEDS ORDERED: chlordiazePOXIDE HCL 10 MG CAPSULE PO ONE (05:00)
[2020-09-10] MEDS: methaDONE 80 MG, methaDONE 10 MG PO SCH (05:26)
[2020-09-10] MEDS ORDERED: INSULIN SLIDING SCALE (NOVOLOG) 1 VIAL SQ ONE (05:30)
[2020-09-10] MEDS: INSULIN SLIDING SCALE (NOVOLOG) 1 VIAL SQ SCH (06:05)
[2020-09-10] MEDS: metFORMIN HCL 500 MG TABLET (FP) PO SCH (06:05)
[2020-09-10 08:55] VITALS: TEMP 97.7
[2020-09-10] MEDS: NICOTINE 21 MG/24 HOURS TOPICAL PATCH TD SCH (10:41)
[2020-09-10] MEDS: PRENATAL VITAMINS W/ FOLIC ACID TABLET (FP) PO SCH (10:41)
[2020-09-10] MEDS ORDERED: INSULIN SLIDING SCALE (NOVOLOG) 1 VIAL SQ SCH (11:00)
[2020-09-10 12:42] VITALS: BP 106/73; PULSE 64
== END 2020-09-10 15:05 | disposition other institution (70) | DRG 773 ==
LOC: YASAS 13:22 → Y3N 17:58
PROVIDERS: ADMIT Allergy & Immunology; ATTEND Allergy & Immunology
PROC: HZ2ZZZZ Detoxification Services for Substance Abuse Treatment (ICD-10-PCS; principal; 2020-09-05)
DX: F10.230 Alcohol dependence with withdrawal, uncomplicated (principal); F11.20 Opioid dependence, uncomplicated; F14.20 Cocaine dependence, uncomplicated; F17.210 Nicotine dependence, cigarettes, uncomplicated; F10.280 Alcohol dependence with alcohol-induced anxiety disorder; F19.24 Other psychoactive substance dependence with psychoactive substance-induced mood disorder; F32.9 Major depressive disorder, single episode, unspecified; E11.65 Type 2 diabetes mellitus with hyperglycemia; Z79.84 Long term (current) use of oral hypoglycemic drugs; A53.0 Latent syphilis, unspecified as early or late; E78.5 Hyperlipidemia, unspecified; I73.9 Peripheral vascular disease, unspecified; Z95.828 Presence of other vascular implants and grafts; Z86.19 Personal history of other infectious and parasitic diseases; Z56.0 Unemployment, unspecified
CPT/HCPCS: 36415; 80053; 82962; 85027; 86593; 86780; C9803; U0003

== ENCOUNTER 2020-09-10 15:33 | Inpatient (IN) | payer OTHER ==
[2020-09-10] MEDS ORDERED: P-EPHED 60MG/TRIPROLIDI 2.5MG TABLET PO PRN (17:03)
[2020-09-10] MEDS ORDERED: NICOTINE POLACRILEX 2 MG GUM BUC PRN (17:03)
[2020-09-10] MEDS ORDERED: guaiFENesin 200 MG/10 ML 10 ML UNIT-DOSE CUPS PO PRN (17:03)
[2020-09-10] MEDS ORDERED: LOPERAMIDE HCL 2 MG CAPSULE PO PRN (17:03)
[2020-09-10] MEDS ORDERED: MENTHOL/PHENOL 1 EACH UD MM PRN (17:03)
[2020-09-10] MEDS ORDERED: MAGNESIUM CITRATE 300 ML BOTTLE PO PRN (17:03)
[2020-09-10] MEDS ORDERED: MAG HYDROX/AL HYDROX/SIMETH 30 ML UNIT-DOSE CUP PO PRN (17:03)
[2020-09-10] MEDS ORDERED: MAGNESIUM HYDROX 2400MG/30ML ORAL SUSPENSION 30 ML CUP PO PRN (17:03)
[2020-09-10] MEDS: THIAMINE HCL 100 MG TABLET (FP) PO SCH (21:16)
[2020-09-10] MEDS: MELATONIN 5 MG TABLETS PO SCH (21:16)
[2020-09-11] MEDS ORDERED: METHADONE HCL 10 MG TABLET PO SCH (06:00)
[2020-09-11] MEDS ORDERED: METHADONE HCL 40 MG DISPERSABLE TABLET ONE (06:44)
[2020-09-11] MEDS ORDERED: METHADONE HCL 10 MG TABLET ONE (06:44)
[2020-09-11] MEDS: METHADONE 80 MG, METHADONE 10 MG PO SCH (06:44)
[2020-09-11] MEDS: metFORMIN HCL 500 MG TABLET (FP) PO SCH ×2 (06:44→17:08)
[2020-09-11] MEDS: IBUPROFEN 400 MG TABLET (FP) PO PRN ×2 (06:45→21:17)
[2020-09-11] MEDS: PRENATAL VITAMINS W/ FOLIC ACID TABLET (FP) PO SCH (09:52)
[2020-09-11 16:01] LABS: HIV INTERPRETATION NEGATIVE (NEGATIVE)
[2020-09-11] MEDS: THIAMINE HCL 100 MG TABLET (FP) PO SCH (21:17)
[2020-09-11] MEDS: MELATONIN 5 MG TABLETS PO SCH (21:17)
[2020-09-12] MEDS ORDERED: METHADONE HCL 40 MG DISPERSABLE TABLET ONE (04:22)
[2020-09-12] MEDS ORDERED: METHADONE HCL 10 MG TABLET ONE (04:22)
[2020-09-12] MEDS: METHADONE 80 MG, METHADONE 10 MG PO SCH (06:55)
[2020-09-12] MEDS: metFORMIN HCL 500 MG TABLET (FP) PO SCH ×2 (06:56→17:08)
[2020-09-12] MEDS: IBUPROFEN 400 MG TABLET (FP) PO PRN ×2 (06:58→21:37)
[2020-09-12] MEDS: PRENATAL VITAMINS W/ FOLIC ACID TABLET (FP) PO SCH (09:56)
[2020-09-12] MEDS: MELATONIN 5 MG TABLETS PO SCH (21:36)
[2020-09-12] MEDS: METHOCARBAMOL 500 MG TABLET PO PRN (21:36)
[2020-09-12] MEDS: THIAMINE HCL 100 MG TABLET (FP) PO SCH (21:36)
[2020-09-13] MEDS ORDERED: METHADONE HCL 40 MG DISPERSABLE TABLET ONE (03:40)
[2020-09-13] MEDS ORDERED: METHADONE HCL 10 MG TABLET ONE (03:40)
[2020-09-13] MEDS: METHADONE 80 MG, METHADONE 10 MG PO SCH (07:24)
[2020-09-13] MEDS: metFORMIN HCL 500 MG TABLET (FP) PO SCH ×2 (07:24→16:34)
[2020-09-13] MEDS: METHOCARBAMOL 500 MG TABLET PO PRN ×2 (07:24→21:40)
[2020-09-13] MEDS: PRENATAL VITAMINS W/ FOLIC ACID TABLET (FP) PO SCH (10:10)
[2020-09-13] MEDS: IBUPROFEN 400 MG TABLET (FP) PO PRN (21:40)
[2020-09-13] MEDS: MELATONIN 5 MG TABLETS PO SCH (21:40)
[2020-09-13] MEDS: THIAMINE HCL 100 MG TABLET (FP) PO SCH (21:40)
[2020-09-14] MEDS ORDERED: METHADONE HCL 10 MG TABLET ONE (03:25)
[2020-09-14] MEDS ORDERED: METHADONE HCL 40 MG DISPERSABLE TABLET ONE (03:25)
[2020-09-14] MEDS: METHADONE 80 MG, METHADONE 10 MG PO SCH (06:43)
[2020-09-14] MEDS: metFORMIN HCL 500 MG TABLET (FP) PO SCH ×2 (06:43→17:01)
[2020-09-14] MEDS: IBUPROFEN 400 MG TABLET (FP) PO PRN (06:44)
[2020-09-14] MEDS: PRENATAL VITAMINS W/ FOLIC ACID TABLET (FP) PO SCH (10:23)
[2020-09-14] MEDS: MELATONIN 5 MG TABLETS PO SCH (21:35)
[2020-09-14] MEDS: THIAMINE HCL 100 MG TABLET (FP) PO SCH (21:35)
[2020-09-15] MEDS ORDERED: METHADONE HCL 10 MG TABLET ONE (03:27)
[2020-09-15] MEDS ORDERED: METHADONE HCL 40 MG DISPERSABLE TABLET ONE (03:27)
[2020-09-15] MEDS: METHADONE 80 MG, METHADONE 10 MG PO SCH (06:27)
[2020-09-15] MEDS: metFORMIN HCL 500 MG TABLET (FP) PO SCH ×2 (06:27→16:57)
[2020-09-15] MEDS: PRENATAL VITAMINS W/ FOLIC ACID TABLET (FP) PO SCH (10:13)
[2020-09-15] MEDS: THIAMINE HCL 100 MG TABLET (FP) PO SCH (21:35)
[2020-09-15] MEDS: MELATONIN 5 MG TABLETS PO SCH (21:35)
[2020-09-16] MEDS ORDERED: METHADONE HCL 10 MG TABLET ONE (05:14)
[2020-09-16] MEDS ORDERED: METHADONE HCL 40 MG DISPERSABLE TABLET ONE (05:14)
[2020-09-16] MEDS: METHADONE 80 MG, METHADONE 10 MG PO SCH (07:01)
[2020-09-16] MEDS: metFORMIN HCL 500 MG TABLET (FP) PO SCH ×2 (07:01→16:51)
[2020-09-16] MEDS: PRENATAL VITAMINS W/ FOLIC ACID TABLET (FP) PO SCH (10:02)
[2020-09-16] MEDS: METHOCARBAMOL 500 MG TABLET PO PRN ×2 (10:03→21:48)
[2020-09-16] MEDS: IBUPROFEN 400 MG TABLET (FP) PO PRN (10:03)
[2020-09-16] MEDS: MELATONIN 5 MG TABLETS PO SCH (21:48)
[2020-09-16] MEDS: THIAMINE HCL 100 MG TABLET (FP) PO SCH (21:48)
[2020-09-16] MEDS: ACETAMINOPHEN 325 MG TABLET (FP) PO PRN (21:49)
[2020-09-17] MEDS ORDERED: METHADONE 80 MG, METHADONE 10 MG PO SCH (01:14)
[2020-09-17] MEDS ORDERED: METHADONE HCL 40 MG DISPERSABLE TABLET ONE (06:56)
[2020-09-17] MEDS: METHADONE 80 MG, METHADONE 10 MG PO SCH (06:56)
[2020-09-17] MEDS ORDERED: METHADONE HCL 10 MG TABLET ONE (06:56)
[2020-09-17] MEDS: metFORMIN HCL 500 MG TABLET (FP) PO SCH ×2 (06:57→16:54)
[2020-09-17] MEDS: PRENATAL VITAMINS W/ FOLIC ACID TABLET (FP) PO SCH (10:21)
[2020-09-17] MEDS: METHOCARBAMOL 500 MG TABLET PO PRN (21:26)
[2020-09-17] MEDS: MELATONIN 5 MG TABLETS PO SCH (21:26)
[2020-09-17] MEDS: THIAMINE HCL 100 MG TABLET (FP) PO SCH (21:26)
[2020-09-17] MEDS: IBUPROFEN 400 MG TABLET (FP) PO PRN (21:27)
[2020-09-18] MEDS ORDERED: METHADONE HCL 40 MG DISPERSABLE TABLET ONE (06:17)
[2020-09-18] MEDS ORDERED: METHADONE HCL 10 MG TABLET ONE (06:17)
[2020-09-18] MEDS: metFORMIN HCL 500 MG TABLET (FP) PO SCH ×2 (06:18→16:42)
[2020-09-18] MEDS: METHADONE 80 MG, METHADONE 10 MG PO SCH (06:18)
[2020-09-18] MEDS: METHOCARBAMOL 500 MG TABLET PO PRN (06:19)
[2020-09-18] MEDS: PRENATAL VITAMINS W/ FOLIC ACID TABLET (FP) PO SCH (10:31)
[2020-09-18] MEDS: IBUPROFEN 400 MG TABLET (FP) PO PRN (10:32)
[2020-09-18] MEDS: MELATONIN 5 MG TABLETS PO SCH (21:28)
[2020-09-18] MEDS: THIAMINE HCL 100 MG TABLET (FP) PO SCH (21:28)
[2020-09-19] MEDS ORDERED: METHADONE HCL 10 MG TABLET ONE (03:24)
[2020-09-19] MEDS ORDERED: METHADONE HCL 40 MG DISPERSABLE TABLET ONE (03:24)
[2020-09-19] MEDS: metFORMIN HCL 500 MG TABLET (FP) PO SCH ×2 (06:30→16:50)
[2020-09-19] MEDS: METHADONE 80 MG, METHADONE 10 MG PO SCH (06:30)
[2020-09-19] MEDS: PRENATAL VITAMINS W/ FOLIC ACID TABLET (FP) PO SCH (10:06)
[2020-09-19] MEDS: THIAMINE HCL 100 MG TABLET (FP) PO SCH (21:35)
[2020-09-19] MEDS: MELATONIN 5 MG TABLETS PO SCH (21:35)
[2020-09-19] MEDS: METHOCARBAMOL 500 MG TABLET PO PRN (21:37)
[2020-09-19] MEDS: ACETAMINOPHEN 325 MG TABLET (FP) PO PRN (21:37)
[2020-09-20] MEDS ORDERED: METHADONE HCL 40 MG DISPERSABLE TABLET ONE (03:30)
[2020-09-20] MEDS ORDERED: METHADONE HCL 10 MG TABLET ONE (03:30)
[2020-09-20] MEDS: metFORMIN HCL 500 MG TABLET (FP) PO SCH ×2 (06:16→16:42)
[2020-09-20] MEDS: METHADONE 80 MG, METHADONE 10 MG PO SCH (06:16)
[2020-09-20] MEDS: PRENATAL VITAMINS W/ FOLIC ACID TABLET (FP) PO SCH (09:44)
[2020-09-20] MEDS: MELATONIN 5 MG TABLETS PO SCH (21:26)
[2020-09-20] MEDS: THIAMINE HCL 100 MG TABLET (FP) PO SCH (21:26)
[2020-09-21] MEDS ORDERED: METHADONE HCL 10 MG TABLET ONE (03:53)
[2020-09-21] MEDS ORDERED: METHADONE HCL 40 MG DISPERSABLE TABLET ONE (03:53)
[2020-09-21] MEDS: METHADONE 80 MG, METHADONE 10 MG PO SCH (06:16)
[2020-09-21] MEDS: metFORMIN HCL 500 MG TABLET (FP) PO SCH ×2 (06:19→16:54)
[2020-09-21] MEDS: PRENATAL VITAMINS W/ FOLIC ACID TABLET (FP) PO SCH (09:49)
[2020-09-21] MEDS: IBUPROFEN 400 MG TABLET (FP) PO PRN (21:31)
[2020-09-21] MEDS: METHOCARBAMOL 500 MG TABLET PO PRN (21:32)
[2020-09-21] MEDS: THIAMINE HCL 100 MG TABLET (FP) PO SCH (21:32)
[2020-09-21] MEDS: MELATONIN 5 MG TABLETS PO SCH (21:32)
[2020-09-22] MEDS ORDERED: METHADONE HCL 10 MG TABLET ONE (03:34)
[2020-09-22] MEDS ORDERED: METHADONE HCL 40 MG DISPERSABLE TABLET ONE (03:35)
[2020-09-22] MEDS: metFORMIN HCL 500 MG TABLET (FP) PO SCH ×2 (06:18→16:56)
[2020-09-22] MEDS: METHOCARBAMOL 500 MG TABLET PO PRN ×2 (06:18→21:26)
[2020-09-22] MEDS: METHADONE 80 MG, METHADONE 10 MG PO SCH (06:20)
[2020-09-22 06:50] VITALS: TEMP 98
[2020-09-22] MEDS: PRENATAL VITAMINS W/ FOLIC ACID TABLET (FP) PO SCH (09:41)
[2020-09-22] MEDS: THIAMINE HCL 100 MG TABLET (FP) PO SCH (21:26)
[2020-09-22] MEDS: MELATONIN 5 MG TABLETS PO SCH (21:26)
[2020-09-22] MEDS: IBUPROFEN 400 MG TABLET (FP) PO PRN (21:26)
[2020-09-23] MEDS ORDERED: METHADONE HCL 10 MG TABLET ONE (03:09)
[2020-09-23] MEDS ORDERED: METHADONE HCL 40 MG DISPERSABLE TABLET ONE (03:09)
[2020-09-23] MEDS: metFORMIN HCL 500 MG TABLET (FP) PO SCH ×2 (06:18→16:47)
[2020-09-23] MEDS: METHADONE 80 MG, METHADONE 10 MG PO SCH (06:18)
[2020-09-23] MEDS: PRENATAL VITAMINS W/ FOLIC ACID TABLET (FP) PO SCH (09:55)
[2020-09-23] MEDS: MELATONIN 5 MG TABLETS PO SCH (21:29)
[2020-09-23] MEDS: THIAMINE HCL 100 MG TABLET (FP) PO SCH (21:29)
[2020-09-23] MEDS: METHOCARBAMOL 500 MG TABLET PO PRN (21:29)
[2020-09-24] MEDS ORDERED: METHADONE HCL 10 MG TABLET ONE (03:40)
[2020-09-24] MEDS ORDERED: METHADONE HCL 40 MG DISPERSABLE TABLET ONE (03:40)
[2020-09-24] MEDS: metFORMIN HCL 500 MG TABLET (FP) PO SCH (06:35)
[2020-09-24 07:00] VITALS: BP 168/99; PULSE 64
[2020-09-24] MEDS ORDERED: METHADONE HCL 10 MG TABLET PO SCH (07:00)
[2020-09-24] MEDS ORDERED: METHADONE 80 MG, METHADONE 10 MG PO SCH (07:15)
[2020-09-24] MEDS: PRENATAL VITAMINS W/ FOLIC ACID TABLET (FP) PO SCH (09:53)
== END 2020-09-24 09:50 | disposition home or self-care (01) | DRG 772 ==
LOC: YASAS 15:33 → Y5N 15:34
PROVIDERS: ADMIT Allergy & Immunology; ATTEND Allergy & Immunology
PROC: HZ42ZZZ Group Counseling for Substance Abuse Treatment, Cognitive-Behavioral (ICD-10-PCS; principal; 2020-09-10)
DX: F10.20 Alcohol dependence, uncomplicated (principal); F11.20 Opioid dependence, uncomplicated; F14.10 Cocaine abuse, uncomplicated; F17.210 Nicotine dependence, cigarettes, uncomplicated; F32.9 Major depressive disorder, single episode, unspecified; B18.2 Chronic viral hepatitis C; E11.9 Type 2 diabetes mellitus without complications; Z79.84 Long term (current) use of oral hypoglycemic drugs; Z87.828 Personal history of other (healed) physical injury and trauma
CPT/HCPCS: 36415; 82962; 87389; C9803; U0003

== ENCOUNTER 2023-10-30 10:54 | Inpatient (IN) | payer OTHER ==
[2023-10-30 12:02] VITALS: BMI 23.8
[2023-10-30] MEDS ORDERED: NALOXONE HCL 0.4 MG/ML VIAL IM PRN (12:26)
[2023-10-30] MEDS ORDERED: guaiFENesin 600 MG TABLET.ER (FP) PO PRN (12:26)
[2023-10-30] MEDS ORDERED: NALOXONE HCL (KLOXXADO) 8 MG SPRAY NS PRN (12:26)
[2023-10-30] MEDS ORDERED: LOPERAMIDE HCL 2 MG CAPSULE PO PRN (12:26)
[2023-10-30] MEDS ORDERED: ACETAMINOPHEN 325 MG TABLET (FP) PO PRN (12:26)
[2023-10-30] MEDS ORDERED: BENZOCAINE/MENTHOL (CHLORASEPTIC ) LOZENGE MM PRN (12:26)
[2023-10-30] MEDS ORDERED: BENZONATATE 200 MG CAPSULE PO PRN (12:26)
[2023-10-30] MEDS ORDERED: hydrOXYzine PAMOATE 25 MG CAPSULE (FP) PO PRN (12:26)
[2023-10-30] MEDS ORDERED: IBUPROFEN 400 MG TABLET (FP) PO PRN (12:26)
[2023-10-30] MEDS ORDERED: POLYETHYLENE GLYCOL (HEALTHYLAX) 3350 17 GM PACKET PO PRN (12:26)
[2023-10-30] MEDS ORDERED: MAGNESIUM HYDROX 2400MG/30ML ORAL SUSPENSION 30 ML CUP PO PRN (12:26)
[2023-10-30] MEDS ORDERED: NICOTINE POLACRILEX 2 MG GUM BUC PRN (12:26)
[2023-10-30] MEDS ORDERED: TUBERCULIN PPD 5 TU/0.1ML VIAL ID ONE ×4 (18:57→22:30)
[2023-10-30] MEDS: metFORMIN HCL 500 MG TABLET (FP) PO SCH (19:04)
[2023-10-30] MEDS: INSULIN ASPART SLIDING SCALE (NOVOLOG) 1 VIAL SQ SCH (19:06)
[2023-10-30] MEDS: TUBERCULIN PPD 5 TU/0.1ML SYRINGE (IN PATIENT USE ONLY) ID ONE (22:23)
[2023-10-30] MEDS: INSULIN (LEVEMIR) 100 UNITS/ML UNITS SQ SCH (22:26)
[2023-10-30] MEDS: THIAMINE HCL 100 MG TABLET (FP) PO SCH (22:27)
[2023-10-30] MEDS: MELATONIN 5 MG TABLETS PO SCH (22:27)
[2023-10-31] MEDS: PRENATAL VITAMINS W/ FOLIC ACID TABLET (FP) PO SCH (09:48)
[2023-10-31] MEDS ORDERED: methaDONE HCL 10 MG TABLET PO SCH (10:45)
[2023-10-31] MEDS: FLU VACCINE (FLULAVAL) PF 60 MCG/0.5 ML SYRINGE 2023-2024 IM ONE (12:49)
[2023-10-31 12:52] LABS: HEMATOCRIT 37.7 % (35.4-49); HEMOGLOBIN 12.5 GM/dL (11.7-16.9); MCH 29.2 pg (25.7-33.7); MCHC 33.3 g/dl (32.0-35.9); MEAN CELL VOLUME 87.7 fl (80-96); MEAN PLT VOLUME 7.3 fl (7.5-11.1); PLATELET COUNT 351 10^3/uL (134-434); WHITE BLOOD COUNT 8.3 K/mm3 (4.0-10.0)
[2023-10-31 13:02] LABS: POTASSIUM 4.5 mmol/L (3.5-5.1)
[2023-10-31 13:05] LABS: CALCIUM 9.1 mg/dL (8.5-10.1)
[2023-10-31 13:06] LABS: ALBUMIN 3.2 g/dl (3.4-5.0); BLOOD UREA NITROGEN 11.3 mg/dL (7-18)
[2023-10-31 13:09] LABS: CREATININE 0.8 mg/dL (0.55-1.3)
[2023-10-31 13:10] LABS: BILIRUBIN,TOTAL 0.4 mg/dL (0.2-1); TOT PROT 7.1 g/dl (6.4-8.2)
[2023-10-31] MEDS ORDERED: INSULIN (NOVOLOG) ASPART 100 UNITS/ML 10ML VIAL ONE (16:42)
[2023-10-31] MEDS: traZODone HCL 50 MG TABLET (FP) PO SCH (21:34)
[2023-11-01] MEDS ORDERED: INSULIN (NOVOLOG) ASPART 100 UNITS/ML 10ML VIAL ONE ×4 (06:50→18:41)
[2023-11-02] MEDS ORDERED: methaDONE HCL 10 MG TABLET PO SCH (06:00)
[2023-11-02] MEDS ORDERED: INSULIN (NOVOLOG) ASPART 100 UNITS/ML 10ML VIAL ONE ×2 (06:12→11:50)
[2023-11-02] MEDS ORDERED: MELATONIN 5 MG TABLETS PO SCH (09:35)
[2023-11-02] MEDS: SUVOREXANT 10 MG TABLET PO PRN (21:19)
[2023-11-02 22:00] LABS: URINE APPEARANCE CLEAR; URINE BILIRUBIN NEGATIVE (NEGATIVE); URINE COLOR YELLOW; URINE GLUCOSE (UA) NEGATIVE (NEGATIVE); URINE KETONE NEGATIVE (NEGATIVE); URINE LEUK ESTERASE NEGATIVE (NEGATIVE); URINE NITRITE NEGATIVE (NEGATIVE); URINE PROTEIN NEGATIVE (NEGATIVE); URINE UROBILINOGEN 0.2 mg/dL (0.2-1.0)
[2023-11-03] MEDS: methaDONE HCL 40 MG DISPERSABLE TABLET PO SCH (06:31)
[2023-11-04] MEDS: MAG HYDROX/AL HYDROX/SIMETH 30 ML UNIT-DOSE CUP PO PRN (06:26)
[2023-11-04] MEDS ORDERED: INSULIN (NOVOLOG) ASPART 100 UNITS/ML 10ML VIAL ONE ×3 (12:05→16:59)
[2023-11-05] MEDS ORDERED: INSULIN (NOVOLOG) ASPART 100 UNITS/ML 10ML VIAL ONE (16:34)
[2023-11-05] MEDS: SUVOREXANT 10 MG TABLET PO PRN (21:22)
[2023-11-05] MEDS: IBUPROFEN 600 MG TABLET (FP) PO PRN (21:23)
[2023-11-07] MEDS ORDERED: INSULIN (NOVOLOG) ASPART 100 UNITS/ML 10ML VIAL ONE (16:27)
[2023-11-08 07:12] VITALS: RESP 18
[2023-11-09] MEDS ORDERED: INSULIN (NOVOLOG) ASPART 100 UNITS/ML 10ML VIAL ONE (12:00)
[2023-11-09] MEDS: SUVOREXANT 10 MG TABLET PO PRN (21:20)
[2023-11-10] MEDS ORDERED: INSULIN (NOVOLOG) ASPART 100 UNITS/ML 10ML VIAL ONE (12:00)
[2023-11-12 07:18] VITALS: BP 147/86; PULSE 74; TEMP 98.1
== END 2023-11-12 10:00 | disposition home or self-care (01) | DRG 772 ==
LOC: YASAS 10:54 → Y5N 18:26
PROVIDERS: ADMIT Allergy & Immunology; ATTEND Psychiatry & Neurology Pain Medicine
PROC: HZ42ZZZ Group Counseling for Substance Abuse Treatment, Cognitive-Behavioral (ICD-10-PCS; principal; 2023-10-30)
DX: F14.20 Cocaine dependence, uncomplicated (principal); F11.20 Opioid dependence, uncomplicated; F17.210 Nicotine dependence, cigarettes, uncomplicated; F19.282 Other psychoactive substance dependence with psychoactive substance-induced sleep disorder; F10.280 Alcohol dependence with alcohol-induced anxiety disorder; F19.24 Other psychoactive substance dependence with psychoactive substance-induced mood disorder; Z21 Asymptomatic human immunodeficiency virus [HIV] infection status; E78.5 Hyperlipidemia, unspecified; I10 Essential (primary) hypertension; E11.65 Type 2 diabetes mellitus with hyperglycemia; Z79.4 Long term (current) use of insulin; Z79.84 Long term (current) use of oral hypoglycemic drugs; Z95.828 Presence of other vascular implants and grafts; Z86.19 Personal history of other infectious and parasitic diseases; Z86.11 Personal history of tuberculosis
CPT/HCPCS: 36415; 80053; 80305; 81003; 82962; 85027; 86593; 86780; 87635; 93005; 93010